=== PATIENT | female | born 1950 | race Caucasian/White ===

== ENCOUNTER → 2017-01-08 | Outpatient (CLI) | payer MEDICARE ==
[~2017-01-08] MED LIST: ALBUTEROL SULFATE 0.083% NEB 2.5 MG/3 ML AMPUL NEB ONE
--- NOTE | 2017-01-08 16:51 | Pulmonary Function Test ---
Pulmonary Function Test Date of Procedure:: 01/08/17 INDICATION:: Dyspnea Referring Provider: Dr. Head Machine Engineer: Blessing Mcadams INFORMATION TECHNOLOGY TEACHER - Report Spirometry: FVC 1.50 L 50% postbronchodilator therapy 1.39 L 46% FEV1 0.83 L 35% postbronchodilator therapy 0.81 L 34% FEV1/FVC % 56 postbronchodilator therapy 58 predicted 82 Lung Volume: Total lung capacity 3.08 L 61% Vital capacity 1.50 L 50% Inspiratory capacity 1.11 L FRC 1.98 81% ERV 0.15 RV 1.59 L 80% RV/TLC % 51 predicted 39 Diffusion Capactity: DLCO 8.9 37% DLCO/VA 4.99 134% Impression: Severe obstructive ventilatory defect with insignificant response to bronchodilator therapy. This does not preclude a clinical trial of bronchodilator therapy. Mild restrictive ventilatory defect. No hyperinflation or air trapping. Severe decrease in diffusion capacity.
== END ==
LOC: RT 12:34
PROVIDERS: ATTEND Internal Medicine Pulmonary Disease
DX: J47.1 Bronchiectasis with (acute) exacerbation (principal)
CPT/HCPCS: 94729; 94727; 94060; A9270

== ENCOUNTER 2017-01-10 20:54 | Emergency (ER) | payer MEDICARE ==
[~2017-01-10 20:54] MED LIST changes: -ALBUTEROL SULFATE 0.083% NEB 2.5 MG/3 ML AMPUL NEB ONE; +MAGNESIUM SULFATE/D5W 100 ML IV SCH; +ROCURONIUM BROMIDE INJ 50 MG/5 ML VIAL IV ONE
[2017-01-10] MEDS ORDERED: MAGNESIUM SULFATE/D5W 2 GM/200 ML RTUPB IV ONE (21:00)
[2017-01-10] MEDS ORDERED: ALBUTEROL SULFATE 0.083% NEB 2.5 MG/3 ML AMPUL NEB ONE ×3 (21:02→21:22)
[2017-01-10] MEDS ORDERED: ETOMIDATE INJ/PF 20 MG/10 ML SDV IV ONE (21:03)
[2017-01-10] MEDS ORDERED: KETAMINE HCL INJ 500 MG/10 ML VIAL IV ONE ×3 (21:05→21:30)
[2017-01-10] MEDS ORDERED: KETAMINE HCL INJ 500 MG/10 ML VIAL ONE ×2 (21:07→21:34)
[2017-01-10] MEDS ORDERED: ROCURONIUM BROMIDE INJ 50 MG/5 ML VIAL IV ONE (21:20)
--- NOTE | 2017-01-10 21:35 | ER Document Report ---
ED General - General Stated Complaint: DIFFICULTY BREATHING Cannot obtain history due to: Unstable vital signs, Other - Respiratory distress Notes: Patient is a 66-year-old female who presents in severe respiratory distress. Patient has a history of COPD no longer active smoker. History is extremely limited as at time of arrival patient is critically ill. Hemostasis outpatient saturating 64% on room air and in severe distress. Placed on CPAP and began continuous in-line nebulizers. Solu-Medrol was administered. The note minimal to no improvement with these interventions beyond improve and her oxygen saturation to 91% on CPAP. Has never had to be intubated past for COPD per her report. TRAVEL OUTSIDE OF THE [place] IN LAST 30 DAYS: No - Related Data Allergies/Adverse Reactions: No Known Allergies Allergy (Unverified 08/28/16 12:14) Past Medical History - General Information source: Patient - Social History Smoking Status: Former Smoker Frequency of alcohol use: None Drug Abuse: None Lives with: Family Family History: Reviewed & Not Pertinent Pulmonary Medical History: Reports: Hx COPD Endocrine Medical History: Reports: Hx Diabetes Mellitus Type 2 Review of Systems - Review of Systems Notes: Constitutional: Negative for fever. HENT: Negative for sore throat. Eyes: Negative for visual changes. Cardiovascular: Negative for chest pain. Respiratory: Positive for shortness of breath. Gastrointestinal: Negative for abdominal pain, vomiting or diarrhea. Genitourinary: Negative for dysuria. Musculoskeletal: Negative for back pain. Skin: Negative for rash. Neurological: Negative for headaches, weakness or numbness. 10 point ROS negative except as marked above and in HPI. Physical Exam - Vital signs Vitals: Resp Pulse Ox 33 H 87 L 01/10/17 20:59 01/10/17 20:59 Interpretation: Tachycardic, Hypoxic, Tachypneic Notes: PHYSICAL EXAMINATION: GENERAL: In severe respiratory distress. Critically ill in appearance. HEAD: Atraumatic, normocephalic. EYES: sclera anicteric, conjunctiva are normal. ENT: nares patent, oropharynx clear without exudates. Dry mucous membranes. NECK: supple without lymphadenopathy LUNGS: Severe respiratory distress with initial respiratory rate of 46 breaths per minute on CPAP by EMS. She is having abdominal heaving during respirations. Intercostal retractions as well as supraclavicular contractions. Diminished air movement throughout. Severe expiratory wheezing with a prolonged expiratory phase. HEART: Regular tachycardia without murmurs ABDOMEN: Soft, nontender, normoactive bowel sounds. No guarding, no rebound. No masses appreciated. EXTREMITIES: no pitting or edema. No cyanosis. NEUROLOGICAL: No focal neurological deficits. Moves all extremities spontaneously and on command. PSYCH: Anxious SKIN: Warm, Dry, normal turgor, no rashes or lesions noted. Course - Re-evaluation Re-evalutation: 01/10/17 21:00 Patient presents in severe respiratory distress findings most consistent with COPD exacerbation at time of arrival. Patient has severe distress with retractions throughout. Patient is critically ill in appearance and somewhat lethargic likely secondary to CO2 encephalopathy. Patient was immediately placed on a BiPAP with continuous in-line nebulizers. 2 g of IV magnesium was administered. Solu-Medrol 125 had already been given prior to arrival. Patient was observed for 15 minutes using BiPAP and aggressive measures using nebulizers. I also trial a low-dose of ketamine 15 mg which allowed patient to relax slightly but did not seem to improve her breathing any measurable degree. Will continue to monitor closely and see if patient can improve her overall clinical status on BiPAP although I remain concerned that she will require intubation at this time 2123-patient has continued with respiratory distress, continues to be somewhat encephalopathic. Chest x-ray shows atelectasis at the bases bilaterally. No pneumothorax. At this time patient is failing noninvasive positive pressure ventilation and will be intubated. 2134-patient was intubated without difficulty. First-pass attempt was successful. Patient will be placed on ventilator respiratory rate 22 FiO2 of 40 % with a tidal volume of 450. Continues of-year-old otherwise will be continued through the BiPAP. She was started on ketamine infusion for sedation and bronchodilation. She remains critically ill 01/10/17 22:00 Patient ventilating well with the ventilator. Venous blood gas return demonstrate findings consistent with an acute COPD exacerbation with associated respiratory acidosis. Lactate is normal. Awaiting the remainder patient's labs. Chest x-ray post intubation shows acceptable placement. 01/10/17 22:30 Patient did have hypotension, ET tube was disconnected and chest was manually compressed with normalization of the BP. Rate decreased to 14. Care discussed with family at the bedside at length. BNP and troponin wnl. I have discussed this case with Dr. Copeland who is informed me that we do not accept intubated patients at this time. This is apparently due to lack of staff in ICU. Will contact [facility] for transfer [id number]-I discussed this case with Dr. Lou at [facility] for transfer. He has accepted this patient in transfer 01/11/17 00:00 Transport has arrived for transfer the patient. She has been reassessed. Vitals within normal limits at this time with the exception of mild tachycardia. Ventilating well. Stable for transfer at this time - Vital Signs Vital signs: Temp Pulse Resp BP Pulse Ox 16 154/80 H 99 01/11/17 00:29 01/11/17 00:01 01/11/17 00:01 - Laboratory Result Diagrams: 01/10/17 21:03 01/10/17 21:03 Laboratory results interpreted by me: 01/10/17 01/10/17 01/10/17 21:03 21:03 21:03 WBC 23.0 H RDW 15.6 H Lymphocytes % (Manual) 9 L Eosinophils % (Manual) 8 H Abs Neuts (Manual) 17.7 H Absolute Eos (Manual) 1.8 H VBG pH 7.19 L* VBG pCO2 91.4 H* VBG HCO3 34.0 H Carbon Dioxide 34 H BUN 22 H Glucose 178 H Alkaline Phosphatase 129 H - Diagnostic Test Radiology reviewed: Image reviewed, Reports reviewed Procedures - Intubation Orotracheal Airway evaluation: Normal anatomy Mallampati Classification: Class 2 Medications: Ketamine, Other - Rocuronium Intubation method: Orotracheal Blade type: Alondra Blade size: 4 ETT size: 7.5 ETT secured at: Gums ETT secured at (cm): 21 Breath Sounds after Intubation: Equal End tidal CO2 confirmed: Yes Ventilator settings: SIMV Tidal volume: 400 FiO2: 40 Respirations: 22 PEEP: 5 Post Intubation Xray: Yes Intubation Complications: No complications Critical Care Note - Critical Care Note Total time excluding time spent on procedures (mins): 85 Comments: Critical care time spent obtaining history from patient or surrogate, discussions with consultants, development of treatment plan with patient or surrogate, evaluation of patient's response to treatment, examination of patient , ordering and performing treatments and interventions, ordering and review of laboratory studies, re-evaluation of patient's condition, ordering and review of radiographic studies and review of old charts Discharge - Discharge Clinical Impression: Respiratory distress, COPD exacerbation Condition: Critical Disposition: [facility] Referrals: LEIGHTON DONOVAN PA [Primary Care Provider] - Follow up as needed
[2017-01-10 21:43] LABS: HEMATOCRIT 41.3 % (36.0-47.0); HEMOGLOBIN 13.2 g/dL (12.0-15.5); HGB HCT DIFFERENCE -1.7; MEAN CORPUSCULAR HEMOGLOBIN 28.8 pg (27.0-33.4); MEAN CORPUSCULAR VOLUME 90 fl (80-97); RED CELL DISTRIBUTION WIDTH 15.6 % (11.5-14.0)
[2017-01-10 21:53] LABS: ALANINE AMINOTRANSFERASE 25 U/L (9-52); ALKALINE PHOSPHATASE 129 U/L (38-126); ANION GAP 10 (5-19); ASPARTATE AMINO TRANSFERASE 19 U/L (14-36); BILIRUBIN,DIRECT 0.3 mg/dL (0.0-0.4); BILIRUBIN,TOTAL 0.4 mg/dL (0.2-1.3); BLOOD UREA NITROGEN 22 mg/dL (7-20); CALCIUM 10.1 mg/dL (8.4-10.2); CARBON DIOXIDE 34 mmol/L (22-30); CHLORIDE 99 mmol/L (98-107); CREATININE RESULT 0.66 mg/dL (0.52-1.25); GLUCOSE 178 mg/dL (75-110); POTASSIUM 3.9 mmol/L (3.6-5.0); SODIUM 142.9 mmol/L (137-145); TOTAL PROTEIN 7.4 g/dL (6.3-8.2)
[2017-01-10 21:54] LABS: VENOUS BLOOD BASE EXCESS 2.6 mmol/L
[2017-01-10 21:56] LABS: VENOUS BLOOD PCO2 91.4 mmHg (35-63); VENOUS BLOOD PH 7.19 (7.30-7.42)
[2017-01-10 21:58] LABS: BASOPHILS % (MANUAL) 0 % (0-2); EOSINOPHILS % (MANUAL) 8 % (0-6); LYMPHOCYTES % (MANUAL) 9 % (13-45); TOTAL CELLS COUNTED 100
[2017-01-10 21:59] LABS: ANISOCYTOSIS SLIGHT; POLYCHROMASIA SLIGHT; TOXIC GRANULATION SLIGHT
[2017-01-10] MEDS ORDERED: NORMAL SALINE 1000 ML 500 ML IV ONE (21:59)
[2017-01-10] MEDS ORDERED: CEFTRIAXONE 1 GM/D5W RTU 50 ML IV ONE (22:00)
[2017-01-10] MEDS ORDERED: LEVOFLOXACIN 750 MG/D5W RTU 150 ML IV ONE (22:01)
[2017-01-10 22:07] LABS: TROPONIN I 0.037 ng/mL
[2017-01-11 00:04] VITALS: BP 154/80
--- NOTE | 2017-01-11 10:03 | EKG REPORT ---
SEVERITY:- ABNORMAL ECG - SINUS TACHYCARDIA PROBABLE LEFT ATRIAL ABNORMALITY : Confirmed by: Rose Sabillon 11-Jan-2017 10:02:52
== END 2017-01-11 00:29 | disposition short-term general hospital (02) ==
LOC: ER 20:54
PROC: 0BH17EZ Insertion of Endotracheal Airway into Trachea, Via Natural or Artificial Opening (ICD-10-PCS; principal; 2017-01-10)
DX: J44.1 Chronic obstructive pulmonary disease with (acute) exacerbation (principal); R53.83 Other fatigue; E11.9 Type 2 diabetes mellitus without complications
CPT/HCPCS: 31500; 93005; 94640 ×2; 99291; 99292; 96361; 96365; 96368; 36415; 87040; 85025; 80053; 84484; 82803; 83605; 83880; 71010; 93010; 94660; J3490 ×2; J0696; J1956; A9270; 94002

== ENCOUNTER 2017-03-18 23:19 | Inpatient (IN) | payer MEDICARE ==
--- NOTE | 2017-03-18 23:27 | ER Document Report ---
ED GI/ - General Chief Complaint: Shortness Of Breath Stated Complaint: DIFFICULTY BREATHING TRAVEL OUTSIDE OF THE [place] IN LAST 30 DAYS: No - Related Data Allergies/Adverse Reactions: No Known Allergies Allergy (Unverified 08/28/16 12:14) Past Medical History - Social History Family History: Reviewed & Not Pertinent Pulmonary Medical History: Reports: Hx COPD Endocrine Medical History: Reports: Hx Diabetes Mellitus Type 2
[2017-03-18] MEDS ORDERED: MAGNESIUM SULFATE/D5W 2 GM/200 ML RTUPB IV ONE (23:31)
[2017-03-18] MEDS ORDERED: IPRATROPIUM/ALBUTEROL 0.5-2.5 MG/3 ML AMPUL NEB ONE (23:35)
[2017-03-18] MEDS ORDERED: ALBUTEROL SULFATE 0.083% NEB 2.5 MG/3 ML AMPUL NEB ONE (23:35)
--- NOTE | 2017-03-18 23:40 | ER Document Report ---
ED General - General Chief Complaint: Shortness Of Breath Stated Complaint: DIFFICULTY BREATHING Time Seen by Provider: 03/18/17 23:34 Notes: Patient is a 66-year-old female with a history of severe COPD who presents for respiratory distress. She says she started having difficulty breathing during the day. She placed herself on oxygen 2 L at home and then started doing Albuterol treatments. She continued to get worse or call an ambulance. Paramedics gave her 2 DuoNeb treatments and Solu-Medrol in route. She has been intubated in the past. She denies any fevers. She denies any chest pain. She denies any other complaints at this time. She does not smoke any longer. TRAVEL OUTSIDE OF THE [place] IN LAST 30 DAYS: No - Related Data Allergies/Adverse Reactions: No Known Allergies Allergy (Unverified 08/28/16 12:14) Past Medical History - Social History Smoking Status: Former Smoker Frequency of alcohol use: None Drug Abuse: None Family History: Reviewed & Not Pertinent Pulmonary Medical History: Reports: Hx COPD Endocrine Medical History: Reports: Hx Diabetes Mellitus Type 2 Review of Systems - Review of Systems Notes: My Normal Review Basic REVIEW OF SYSTEMS: CONSTITUTIONAL : Denies fever, chills, or sweats. Denies recent illness. EENT: Denies eye, ear, throat, or mouth pain or symptoms. Denies nasal or sinus congestion. CARDIOVASCULAR: Denies chest pain. RESPIRATORY: Diffuse wheezing. GASTROINTESTINAL: Denies abdominal pain. Denies nausea, vomiting, or diarrhea. Denies constipation. Last BM: MUSCULOSKELETAL: Denies neck or back pain or joint pain or swelling. SKIN: Denies rash or skin lesions. NEUROLOGICAL: Denies altered mental status or loss of consciousness. Denies headache. Denies weakness or paralysis or loss of use of either side. Denies problems with gait or speech. Denies sensory or motor loss. ALL OTHER SYSTEMS REVIEWED AND NEGATIVE. Physical Exam - Vital signs Vitals: Resp Pulse Ox 25 H 95 03/18/17 23:35 03/18/17 23:35 - Notes Notes: General Appearance: Well nourished, alert, cooperative, moderate acute distress , no obvious discomfort. Speaking in 2-3 word sentences. Vitals: reviewed, See vital signs table. Head: no swelling or tenderness to the head Eyes: PERRL, EOMI, Conjuctiva clear Mouth: No decreasd moisture Throat: No tonsillar inflammation, No airway obstruction, No lymphadenopathy Neck: Supple, no neck tenderness Lungs: diffuse wheezing, No rales, No rhonci, No accessory muscle use, poorair exchange bilaterally. Heart: tachycardic rate, Regular rythm, No murmur, no rub Abdomen: Normal BS, soft, No rigidity, No abdominal tenderness, No guarding, no rebound, no abdominal masses, no organomegaly Extremities: strength 5/5 in all extremities, good pulses in all extremities, no swelling or tenderness in the extremities, 1+ bilateral lower extremityedema. Skin: warm, dry, appropriate color, no rash Neuro: speech clear, oriented x 3, normal affect, responds appropriately to questions. Course - Re-evaluation Re-evalutation: 03/19/17 00:39 Patient looks and feels much improved on exam. Patient's lung. Some tightness but she has much better air movement as compared to when she first came in. She is no longer in distress. I am awaiting the rest of her laboratory evaluation to come back. 03/19/17 02:24 - Vital Signs Vital signs: Temp Pulse Resp BP Pulse Ox 25 H 91 L 03/19/17 00:00 03/19/17 00:00 - Laboratory Result Diagrams: 03/18/17 23:35 03/18/17 23:35 Laboratory results interpreted by me: 03/18/17 03/18/17 03/18/17 23:35 23:35 23:35 WBC 13.7 H MCHC 31.7 L RDW 15.5 H Seg Neuts % (Manual) 85 H Lymphocytes % (Manual) 6 L Abs Neuts (Manual) 11.6 H Potassium 3.4 L Chloride 97 L Carbon Dioxide 31 H Glucose 137 H Alkaline Phosphatase 134 H Creatine Kinase 24 L - EKG Interpretation by Me Additional EKG results interpreted by me: 03/19/17 00:33 T is reviewed and interpreted by me. EKG shows sinus tachycardia with a rate of [address] segment elevation or depression. No ischemic T-wave inversions. WV interval, QRS duration, QTc intervals are within normal range. EKG for comparison is from January 10, 2017. - Transfer of Care Notes: 03/19/17 02:24 Continues to look improved. She is doing well on the BiPAP. Chest x-ray is read as pulmonary vascular congestion; however, when compared to her other chest x-rays it looks very much the same as her previous chest x-rays. She has no chest pain. Her EKG and cardiac enzymes are negative. At this time will admit her for further COPD exacerbation. Dictation of this chart was performed using voice recognition software; therefore, there may be some unintended grammatical errors. Discharge - Discharge Clinical Impression: COPD exacerbation Condition: Stable Disposition: ADMITTED INPATIENT Admitting Provider: Hospitalist Unit Admitted: MATT
--- NOTE | 2017-03-18 23:57 | RADIOLOGY REPORT (SQ) ---
EXAM DESCRIPTION: CHEST SINGLE VIEW COMPLETED DATE/TIME: 03/18/2017 11:48 pm REASON FOR STUDY: respiratory distress COMPARISON: 01/10/2017 EXAM PARAMETERS: NUMBER OF VIEWS: One view. TECHNIQUE: Single frontal radiographic view of the chest acquired. RADIATION DOSE: NA LIMITATIONS: None. FINDINGS: LUNGS AND PLEURA: No opacities, masses or pneumothorax. No pleural effusion. MEDIASTINUM AND HILAR STRUCTURES: No masses. Contour normal. HEART AND VASCULAR STRUCTURES: Cardiac silhouette remains enlarged. Again there is pulmonary vascula r congestion. BONES: No acute findings. HARDWARE: None in the chest. OTHER: No other significant finding. IMPRESSION: No significant interval change. Cardiomegaly with pulmonary vascular congestion. Other findings as noted above TECHNICAL DOCUMENTATION: JOB ID: [id number]
[2017-03-18 23:58] LABS: HEMOGLOBIN 12.7 g/dL (12.0-15.5); HGB HCT DIFFERENCE -1.9; MEAN CORPUSCULAR HEMOGLOBIN 28.7 pg (27.0-33.4); MEAN CORPUSCULAR HGB CONC 31.7 g/dL (32.0-36.0); MEAN CORPUSCULAR VOLUME 90 fl (80-97); RED BLOOD COUNT 4.42 10^6/uL (3.72-5.28); RED CELL DISTRIBUTION WIDTH 15.5 % (11.5-14.0); VENOUS BLOOD BASE EXCESS 0.3 mmol/L; VENOUS BLOOD HCO3 27.3 mmol/L (20-32); VENOUS BLOOD PCO2 53.9 mmHg (35-63); VENOUS BLOOD PH 7.32 (7.30-7.42); WHITE BLOOD COUNT 13.7 10^3/uL (4.0-10.5)
[2017-03-19 00:15] LABS: ALANINE AMINOTRANSFERASE 21 U/L (9-52); ALBUMIN 3.9 g/dL (3.5-5.0); ALKALINE PHOSPHATASE 134 U/L (38-126); ANION GAP 12 (5-19); ASPARTATE AMINO TRANSFERASE 15 U/L (14-36); BILIRUBIN,DIRECT 0.3 mg/dL (0.0-0.4); BILIRUBIN,TOTAL 0.4 mg/dL (0.2-1.3); BLOOD UREA NITROGEN 18 mg/dL (7-20); CALCIUM 10.1 mg/dL (8.4-10.2); CARBON DIOXIDE 31 mmol/L (22-30); CHLORIDE 97 mmol/L (98-107); CREATININE RESULT 0.64 mg/dL (0.52-1.25); GLUCOSE 137 mg/dL (75-110); POTASSIUM 3.4 mmol/L (3.6-5.0); SODIUM 140.4 mmol/L (137-145); TOTAL PROTEIN 7.5 g/dL (6.3-8.2)
[2017-03-19] MEDS ORDERED: FUROSEMIDE INJ/PF 40 MG/4 ML SDV IV ONE (00:32)
[2017-03-19 00:38] LABS: BASOPHILS % (MANUAL) 0 % (0-2); EOSINOPHILS % (MANUAL) 4 % (0-6); LYMPHOCYTES % (MANUAL) 6 % (13-45); TOTAL CELLS COUNTED 100
[2017-03-19 00:39] LABS: RBC MORPHOLOGY COMMENT NORMO-CYTIC/CHROMIC; TOXIC GRANULATION SLIGHT
[2017-03-19] MEDS: MAGNESIUM SULFATE/D5W 100 ML IV SCH ×2 (00:41→01:22)
[2017-03-19 01:10] LABS: CREATINE KINASE MB 0.51 ng/mL (<4.55)
[2017-03-19 01:13] LABS: TROPONIN I < 0.012 ng/mL
[2017-03-19] MEDS ORDERED: POTASSIUM CHLORIDE 10 MEQ TABLET.SA PO ONE (02:18)
[2017-03-19] MEDS ORDERED: GLUCAGON,HUMAN RECOMB 1 MG INJ IM PRN (05:26)
[2017-03-19] MEDS ORDERED: DEXTROSE 50%-WATER 25 GM/50 ML DISP.SYRIN IV PRN ×2 (05:26)
[2017-03-19] MEDS ORDERED: DEXTROSE 40% GEL 15 GM TUBE PO PRN ×2 (05:26)
[2017-03-19] MEDS ORDERED: POTASSIUM CHLORIDE 20 MEQ/15 ML UDCUP PO ONE (05:27)
[2017-03-19] MEDS ORDERED: NORMAL SALINE 1000 ML 1,000 ML IV PRN (05:30)
[2017-03-19] MEDS ORDERED: CEFEPIME 2 GM/D5W RTU 2 GM/50 ML RTUPB IV SCH (05:30)
[2017-03-19] MEDS ORDERED: ACETAMINOPHEN 325 MG TABLET PO PRN (05:31)
[2017-03-19] MEDS ORDERED: GUAIFENESIN SYRP 200 MG/10 ML UDC PO PRN (05:31)
[2017-03-19] MEDS ORDERED: ALBUTEROL SULFATE 0.083% NEB 2.5 MG/3 ML AMPUL NEB PRN (05:31)
[2017-03-19 05:51] LABS: HEMATOCRIT 39.2 % (36.0-47.0); HEMOGLOBIN 12.8 g/dL (12.0-15.5); HGB HCT DIFFERENCE -0.8; MEAN CORPUSCULAR HEMOGLOBIN 29.2 pg (27.0-33.4); MEAN CORPUSCULAR HGB CONC 32.6 g/dL (32.0-36.0); MEAN CORPUSCULAR VOLUME 89 fl (80-97); RED BLOOD COUNT 4.38 10^6/uL (3.72-5.28); RED CELL DISTRIBUTION WIDTH 15.8 % (11.5-14.0); WHITE BLOOD COUNT 8.7 10^3/uL (4.0-10.5)
[2017-03-19 05:53] LABS: VENOUS BLOOD BASE EXCESS 6.2 mmol/L; VENOUS BLOOD HCO3 33.4 mmol/L (20-32); VENOUS BLOOD PCO2 59.7 mmHg (35-63); VENOUS BLOOD PH 7.37 (7.30-7.42)
[2017-03-19] MEDS ORDERED: AZITHROMYCIN 500 MG in DEXTROSE 5%-WATER 250 ML IV SCH (06:00)
[2017-03-19 06:09] LABS: ANION GAP 12 (5-19); BLOOD UREA NITROGEN 19 mg/dL (7-20); CALCIUM 9.9 mg/dL (8.4-10.2); CARBON DIOXIDE 29 mmol/L (22-30); CHLORIDE 99 mmol/L (98-107); CREATININE RESULT 0.57 mg/dL (0.52-1.25); GLUCOSE 178 mg/dL (75-110); POTASSIUM 3.8 mmol/L (3.6-5.0); SODIUM 139.7 mmol/L (137-145)
[2017-03-19 06:42] LABS: ANISOCYTOSIS SLIGHT; BASOPHILS % (MANUAL) 0 % (0-2); EOSINOPHILS % (MANUAL) 0 % (0-6); LYMPHOCYTES % (MANUAL) 6 % (13-45); OVALOCYTES SLIGHT; TEAR DROP CELLS SLIGHT; TOTAL CELLS COUNTED 100; TOXIC GRANULATION SLIGHT
[2017-03-19] MEDS: LANSOPRAZOLE 30 MG TAB.RAP.DR PO SCH (07:45)
[2017-03-19] MEDS: ENOXAPARIN SODIUM INJ 40 MG/0.4 ML DISP.SYRIN SUBCUT SCH (07:46)
[2017-03-19] MEDS: IPRATROPIUM/ALBUTEROL 0.5-2.5 MG/3 ML AMPUL NEB SCH ×3 (08:40→20:38)
--- NOTE | 2017-03-19 09:31 | PDOC H&P ---
History of Present Illness Admission Date/PCP: 03/19/17 02:39 Jovanna Flores History of Present Illness: JULIANN DEAN is a 66 year old female with as needed home O2 dependent COPD who presents to the emergency room for less than 24 hour history of progressive worsening of her respiratory status, in particular with much of any exertion. Began using her oxygen at home, along with albuterol nebs, but with no relief. given 2 DuoNeb treatments and Solu-Medrol en route by EMS. Was in significant respiratory distress upon presentation to the emergency room , but now is breathing much more comfortably since application of BiPAP along with other treatments. no nausea vomiting, fever or chills, or chest pain. Hospitalized 4-5 days in January of this year at [facility], after being intubated in our emergency room and transferred there. Her only intubation. Patient has been discussed with emergency room physician who evaluated the patient. Laboratory results are listed in [facility] and are reviewed. X-ray summary results are listed below, with full report(s) reviewed. . EKG reviewed and compared to prior tracing from January 10 of this year. Social history/personal habits: . Lives with mother. Retired. No current tobacco use. No alcohol or illicit drug use. No known drug allergies. Home medications initially autopopulated into [facility] may not accurately reflect patient's true medications, dosages, and/or frequencies. nuclear medicine pet ct technologist to reconcile medications. Unfortunately, patient not certain of all medications/dosages/frequencies. REVIEW OF SYSTEMS: Constitutional: No fever or chills. Eyes: Wears glasses. ENT: No swallowing problems or complaints. Partial hearing loss. Pulmonary: See history and present illness. Cardiovascular: No current complaints, including chest pain. Gastrointestinal: No current complaints, including nausea or vomiting. Skin: No current complaints, including rashes. Hematologic: Easy bruising. Neurologic: No current complaints, including numbness or tingling. Musculoskeletal: Mild joint pain from arthritis. Psychiatric: Denies anxiety or depression. Endocrine: No current complaints, including polyuria. Genitourinary: No current complaints, including dysuria. PHYSICAL EXAMINATION: 5 feet 5 inches tall. 95.3 kg. BMI 34.9 kg/m.Temperature 97.9. Pulse 105 and regular. Blood pressure 141/73. 98% saturation on BiPAP 30%, pressure 12/ 6. Obese somewhat chronically ill-appearing female who appears a bit older than her stated age. Initially asleep, but awakens easily. Pleasant alert and cooperative. Mildly anxious, without agitation. Her female floor nurse is present. Skin is warm and dry. No grossly obvious evidence of rash in areas of skin examined. No subcutaneous nodules palpated. ENT: Hearing grossly normal to normal conversation. Tongue midline on protrusion pink and slightly tacky. Exam slightly limited by BiPAP mask with attaching straps. Eyes: No scleral icterus. Pupils equal and reactive to light at 4 mm. [place] conjunctivae. Neck is supple and nontender to gentle active range of motion and palpation. Midline trachea. No palpable thyroid nodule mass enlargement or tenderness. Lymphatic: No palpable cervical or clavicular nodes. Neck and lymphatic exams limited by patient body habitus. Exam slightly limited by BiPAP mask with attaching straps. Psychiatric: Reasonable insight into acute and chronic medical issues. Oriented to time location and why here. Lungs: Auscultation reveals equal breath sounds bilaterally. No use of accessory respiratory muscles. Slightly coarse breath sounds in right base; clear otherwise. Cardiovascular: Heart regular rate and rhythm, without gallop murmur or rub. No abdominal aortic bruits. Difficult to evaluate for carotid bruit due to airway sounds from BiPAP device. Cannot adequately evaluate for ankle or pedal edema along with peripheral pulses due to knee high ERNA hose. Toes are warm and dry with excellent capillary refill. Abdomen:soft somewhat obese nontender with positive bowel sounds. Unable to adequately evaluate abdomen for masses or organomegaly due to body habitus. Extremities: Toes are warm and dry. No calf tenderness to compression. Difficult to evaluate for calf swelling due to knee high ERNA hose. Gentle manipulation of lower extremities fails to reveal any obvious evidence of injury or instability to knees hips or ankles. Neurologic: Moves upper extremities grossly normally. Patellar reflexes absent. Absent Babinski. Light touch at feet cannot be adequately evaluated due to ERNA hose. Dorsiflexion and plantarflexion of feet 5 / 5 and symmetric. Past Medical History Cardiac Medical History: Reports: Hyperlipidema, Hypertension Denies: Congestive Heart Failure, DVT, Myocardial Infarction, Pulmonary Embolism Pulmonary Medical History: Reports: Chronic Obstructive Pulmonary Disease (COPD) Denies: Sleep Apnea EENT Medical History: Reports: Eyes - Glasses, Ears - Partial hearing loss Denies: Throat Neurological Medical History: Denies: Hemorrhagic CVA, Ischemic CVA, Seizures Endocrine Medical History: Reports: Diabetes Mellitus Type 2 Denies: Diabetes Mellitus Type 1, Hyperthyroidism, Hypothyroidism Renal/ Medical History: Reports: None GI Medical History: Denies: Cirrhosis, Gastroesophageal Reflux Disease, Hepatitis, Peptic Ulcer Disease Musculoskeltal Medical History: Reports: Arthritis - Mild Skin Medical History: Reports: None Psychiatric Medical History: Denies: Alcohol Dependency, Depression, General Anxiety Disorder, Substance Abuse, Tobacco Dependency Hematology: Reports: Other - Easy bruising Infectious Medical History: Reports: Methicillin-Resistant Staph Aureus - Skin infection during recent [facility] stay. Denies: Clostridium Difficile, Hepatitis B, Hepatitis C Past Surgical History Past Surgical History: Reports: Tubal Ligation Social History Information Source: Patient, Emergency Med Personnel, [facility] Records Lives with: Parents - 92-year-old mother Smoking Status: Former Smoker Frequency of Alcohol Use: None Hx Recreational Drug Use: No Hx Prescription Drug Abuse: No - Advance Directive Resuscitation Status: Full Code Surrogate healthcare decision maker:: Colin Ahumada Family History Family History: Reviewed & Not Pertinent Parental Family History Reviewed: Yes - Father of heart trouble. Mother healthy. Children Family History Reviewed: Yes - Healthy Sibling(s) Family History Reviewed.: Yes - 3 with cancer Medication/Allergy Home Medications: Albuterol Sulfate [Albuterol Sulfate 2.5mg/3 mL] 1 vial IH RTDAILYP PRN Albuterol Sulfate [Proair HFA] 2 puff IH DAILYP PRN 03/19/17 Aspirin [Aspirin 81 mg Chewable Tablet] 81 mg PO DAILY 03/19/17 Fluticasone/Salmeterol [Advair 250-50 Diskus 28 dose] 1 inh IH Q12 03/19/17 Furosemide [Lasix 20 mg Tablet] 20 mg PO DAILYP PRN 03/19/17 Hydrochlorothiazide 25 mg PO DAILY 03/19/17 Loratadine [Claritin 10 mg Tablet] 10 mg PO DAILY 03/19/17 Lovastatin 40 mg PO DAILY 03/19/17 Meloxicam [Mobic 15 mg Tablet] 15 mg PO DAILY 03/19/17 Paroxetine HCl [Paxil 20 mg Tablet] 20 mg PO DAILY 03/19/17 Pioglitazone HCl/Metformin HCl [Actoplus Met Xr 15-1,000 mg Tb] 1 each PO BID Potassium Chloride [Klor-Con 10 Meq Tablet.sa] 10 meq PO DAILYP PRN 03/19/17 Tiotropium [place] [Spiriva Handihaler 18 mcg/dose (30 Dose)] 1 cap IH DAILY Levofloxacin [Levaquin 750 mg Tablet] 750 mg PO DAILY #10 tab 03/20/17 Prednisone [Deltasone 20 mg Tablet] 40 mg PO DAILY #7 tablet 03/20/17 Allergies/Adverse Reactions: No Known Allergies Allergy (Unverified 08/28/16 12:14) Physical Exam Vital Signs: Temp Pulse Resp BP Pulse Ox 97.9 F 105 H 27 H 141/73 H 98 03/19/17 04:09 03/19/17 04:09 03/19/17 04:19 03/19/17 04:09 03/19/17 04:19 Intake & Output 03/18/17 03/19/17 03/20/17 00:59 00:59 00:59 Intake Total 10 Balance 10 Weight 95.254 kg Results Impressions: Chest X-Ray 03/18/17 23:35 IMPRESSION: No significant interval change. Cardiomegaly with pulmonary vascular congestion. Other findings as noted above Assessment & Plan - Diagnosis (1) Acute on chronic respiratory failure with hypercapnia Is this a current diagnosis for this admission?: YesPlan: Patient will be admitted under COPD exacerbation protocol. Incentive spirometry twice a day. Scheduled DuoNeb's. As needed albuterol nebs. Prednisone. Prevacid for gastritis prophylaxis. Antibiotics will consist of intravenous Zithromax and cefepime. Repeat blood gas. Wean from BiPAP as tolerated. I strongly encouraged patient to notify staff should patient feel that breathing is worsening. Patient is a full code. I have strongly encouraged patient not to get out of bed without notifying staff , to avoid a fall with injury. Knee high SCDs for DVT prophylaxis, along with subcutaneous Lovenox. Impression and plans were discussed with patient who concurs. Time spent in evaluation and management of patient: 72 critical-care minutes. (2) COPD exacerbation Is this a current diagnosis for this admission?: Yes (3) Hypokalemia Is this a current diagnosis for this admission?: YesPlan: Potassium supplement. Follow-up chemistry. (4) Diabetes mellitus type 2 in obese Is this a current diagnosis for this admission?: YesPlan: Ice chips only the present time. Accu-Cheks with appropriate sliding scale coverage. Resume home medications as appropriate once these have been determined and reviewed. (5) HLD (hyperlipidemia) Qualifiers: Hyperlipidemia type: unspecified Qualified Code(s): E78.5 - Hyperlipidemia, unspecified Is this a current diagnosis for this admission?: YesPlan: Resume home medications as appropriate once these have been determined and reviewed. (6) HTN (hypertension) Qualifiers: Hypertension type: essential hypertension Qualified Code(s): I10 - Essential (primary) hypertension Is this a current diagnosis for this admission?: YesPlan: Resume home medications as appropriate once these have been determined and reviewed. - Inpatient Certification Based on my medical assessment, after consideration of the patient's comorbidities, presenting symptoms, or acuity I expect that the services needed warrant INPATIENT care.: Yes I certify that my determination is in accordance with my understanding of Medicare's requirements for reasonable and necessary INPATIENT services [42 CFR 412.3e].: Yes Medical Necessity: Need Close Monitoring Due to Risk of Patient Decompensation, Need For IV Fluids, Need For Continuous Telemetry Monitoring, Need for Nebulizer Therapy and Monitoring of Response, Need for IV Antibiotics, Risk of Diagnosis Which Will Require Inpatient Eval/Care/Monitoring Post Hospital Care: D/C or Transfer Summary
[2017-03-19] MEDS: AZITHROMYCIN 500 MG in DEXTROSE 5%-WATER 250 ML IV SCH (10:03)
[2017-03-19] MEDS: CEFEPIME 2 GM/D5W RTU 2 GM/50 ML RTUPB IV SCH ×2 (10:03→21:16)
[2017-03-19] MEDS: PREDNISONE 20 MG TABLET PO SCH (10:03)
--- NOTE | 2017-03-19 11:20 | EKG REPORT ---
SEVERITY:- BORDERLINE ECG - SINUS TACHYCARDIA ATRIAL PREMATURE COMPLEX PROBABLE LATERAL INFARCT, OLD : Confirmed by: Rose Sabillon 19-Mar-2017 11:20:23
[2017-03-19] MEDS: INSULIN LISPRO 100 UNIT/ML 3 ML VIAL SUBCUT PRN ×3 (12:44→22:09)
--- NOTE | 2017-03-19 13:10 | PDOC PROGRESS REPORT ---
Subjective Progress Note for:: 03/19/17 Subjective:: reason for visit: f/u COPD exac, acute bronchitis hospital course: "JULIANN DEAN is a 66 year old female with as needed home O2 dependent COPD who presents to the emergency room for less than 24 hour history of progressive worsening of her respiratory status, in particular with much of any exertion. Began using her oxygen at home, along with albuterol nebs, but with no relief. given 2 DuoNeb treatments and Solu- Medrol in route by EMS. Was in significant respiratory distress upon presentation to the emergency room, but now is breathing much more comfortably since application of BiPAP along with other treatments. no nausea vomiting, fever or chills, or chest pain. Hospitalized 4-5 days in January of this year at [facility], after being intubated it in our emergency room and transferred there. Her only intubation." I found her sitting upright in bed with family at bedside, breathing easier and feels like she can come off the bipap. she denies chest pain, palpitations, n/v /d but still gets SOA with minimal exertion. ROS: all systems reviewed, see HPI, remaining systems negative Physical Exam Vital Signs: Temp Pulse Resp BP Pulse Ox 97.4 F 106 H 16 147/78 H 95 03/19/17 07:48 03/19/17 08:43 03/19/17 08:43 03/19/17 07:48 03/19/17 08:43 General appearance: PRESENT: no acute distress, obese, well-developed, well- nourished Head exam: PRESENT: atraumatic, normocephalic Eye exam: ABSENT: conjunctival injection, scleral icterus Neck exam: ABSENT: tracheal deviation Respiratory exam: PRESENT: crackles - coarse bilat. ABSENT: accessory muscle use, rales, rhonchi, wheezes Cardiovascular exam: PRESENT: RRR. ABSENT: systolic murmur Pulses: PRESENT: normal radial pulses, normal dorsalis pedis pul GI/Abdominal exam: PRESENT: normal bowel sounds, soft. ABSENT: tenderness Musculoskeletal exam: PRESENT: ambulatory, full ROM Neurological exam: PRESENT: alert, awake, oriented to person, oriented to place , oriented to time Psychiatric exam: PRESENT: appropriate affect, normal mood Skin exam: PRESENT: warm. ABSENT: rash Results Laboratory Results: 03/19/17 05:39 03/19/17 05:39 03/19/17 03/19/17 03/19/17 05:39 05:39 05:39 WBC 8.7 RBC 4.38 Hgb 12.8 Hct 39.2 MCV 89 MCH 29.2 MCHC 32.6 RDW 15.8 H Plt Count 192 Seg Neutrophils % Not Reportable Lymphocytes % Not Reportable Monocytes % Not Reportable Eosinophils % Not Reportable Basophils % Not Reportable Absolute Neutrophils Not Reportable Absolute Lymphocytes Not Reportable Absolute Monocytes Not Reportable Absolute Eosinophils Not Reportable Absolute Basophils Not Reportable VBG pH 7.37 VBG pCO2 59.7 VBG HCO3 33.4 H VBG Base Excess 6.2 Sodium 139.7 Potassium 3.8 Chloride 99 Carbon Dioxide 29 Anion Gap 12 BUN 19 Creatinine 0.57 Est GFR ( Amer) > 60 Est GFR (Non-Af Amer) > 60 Glucose 178 H Calcium 9.9 03/19/17 05:39 Troponin I < 0.012 Impressions: Chest X-Ray 03/18/17 23:35 IMPRESSION: No significant interval change. Cardiomegaly with pulmonary vascular congestion. Other findings as noted above Status: Image reviewed by me - agree with rads, consider left pleural effusion and ct scan if condition worsens Assessment & Plan - Diagnosis (1) Acute on chronic respiratory failure with hypercapnia Is this a current diagnosis for this admission?: YesPlan: improved but not back to baseline; continue intermitten BiPAP, steroids and pulm toilet. wears home O2 prn. (2) COPD exacerbation Is this a current diagnosis for this admission?: YesPlan: unchanged; probable bacterial bronchitis; continue abx and other treatment noted above (3) Diabetes mellitus type 2 in obese Is this a current diagnosis for this admission?: YesPlan: continue home regimen (4) HLD (hyperlipidemia) Qualifiers: Hyperlipidemia type: unspecified Qualified Code(s): E78.5 - Hyperlipidemia, unspecified Is this a current diagnosis for this admission?: YesPlan: continue home regimen (5) HTN (hypertension) Qualifiers: Hypertension type: essential hypertension Qualified Code(s): I10 - Essential (primary) hypertension Is this a current diagnosis for this admission?: YesPlan: continue home regimen - Time Time Spent with patient: 25-34 minutes Medications reviewed and adjusted accordingly: Yes Anticipated discharge: Home Within: within 48 hours
[2017-03-20] MEDS: LANSOPRAZOLE 30 MG TAB.RAP.DR PO SCH (05:35)
[2017-03-20] MEDS: ENOXAPARIN SODIUM INJ 40 MG/0.4 ML DISP.SYRIN SUBCUT SCH (08:03)
[2017-03-20] MEDS: IPRATROPIUM/ALBUTEROL 0.5-2.5 MG/3 ML AMPUL NEB SCH (08:34)
[2017-03-20 08:42] VITALS: BP 137/69
[2017-03-20] MEDS: CEFEPIME 2 GM/D5W RTU 2 GM/50 ML RTUPB IV SCH (10:18)
[2017-03-20] MEDS: PREDNISONE 20 MG TABLET PO SCH (10:18)
--- NOTE | 2017-03-20 10:49 | PDOC DISCHARGE SUMMARY ---
General - Admit/Disc Date/PCP Admission Date/Primary Care Provider: 03/19/17 05:31 Discharge Date: 03/20/17 - Discharge Diagnosis (1) Pneumonia Is this a current diagnosis for this admission?: YesSummary: likely LLL with parapneumonic effusion as trigger for her current ills; continue long course of abx. she is already scheduled for outpt ct chest by her PCP and should follow through with that test and f/u with PCP next week to make sure she is progressing as expected. (2) Acute on chronic respiratory failure with hypercapnia Is this a current diagnosis for this admission?: YesSummary: back to baseline; already has home O2, nebs and DME she needs at home. (3) COPD exacerbation Is this a current diagnosis for this admission?: YesSummary: as above (4) Diabetes mellitus type 2 in obese Is this a current diagnosis for this admission?: Yes (5) HLD (hyperlipidemia) Is this a current diagnosis for this admission?: Yes (6) HTN (hypertension) Is this a current diagnosis for this admission?: Yes - Additional Information Resuscitation Status: Full Code Discharge Diet: As Tolerated Discharge Activity: Activity As Tolerated, Slowly Increase Activity Home Medications: Albuterol Sulfate [Albuterol Sulfate 2.5mg/3 mL] 1 vial IH RTDAILYP PRN Albuterol Sulfate [Proair HFA] 2 puff IH DAILYP PRN 03/19/17 Aspirin [Aspirin 81 mg Chewable Tablet] 81 mg PO DAILY 03/19/17 Fluticasone/Salmeterol [Advair 250-50 Diskus 28 dose] 1 inh IH Q12 03/19/17 Furosemide [Lasix 20 mg Tablet] 20 mg PO DAILYP PRN 03/19/17 Hydrochlorothiazide 25 mg PO DAILY 03/19/17 Loratadine [Claritin 10 mg Tablet] 10 mg PO DAILY 03/19/17 Lovastatin 40 mg PO DAILY 03/19/17 Meloxicam [Mobic 15 mg Tablet] 15 mg PO DAILY 03/19/17 Paroxetine HCl [Paxil 20 mg Tablet] 20 mg PO DAILY 03/19/17 Pioglitazone HCl/Metformin HCl [Actoplus Met Xr 15-1,000 mg Tb] 1 each PO BID Potassium Chloride [Klor-Con 10 Meq Tablet.sa] 10 meq PO DAILYP PRN 03/19/17 Tiotropium [place] [Spiriva Handihaler 18 mcg/dose (30 Dose)] 1 cap IH DAILY Levofloxacin [Levaquin 750 mg Tablet] 750 mg PO DAILY #10 tab 03/20/17 Prednisone [Deltasone 20 mg Tablet] 40 mg PO DAILY #7 tablet 03/20/17 History of Present Illness Patient complains of: SOA History of Present Illness: JULIANN DEAN is a 66 year old female with as needed home O2 dependent COPD who presents to the emergency room for less than 24 hour history of progressive worsening of her respiratory status, in particular with much of any exertion. Hospital Course Hospital Course: Began using her oxygen at home, along with albuterol nebs, but with no relief. given 2 DuoNeb treatments and Solu-Medrol in route by EMS. Was in significant respiratory distress upon presentation to the emergency room, but now is breathing much more comfortably since application of BiPAP along with other treatments. no nausea vomiting, fever or chills, or chest pain. Hospitalized 4 -5 days in January of this year at [facility], after being intubated it in our emergency room and transferred there. Her only intubation." I found her sitting upright in bed with family at bedside, breathing easier and feels like she can come off the bipap. she denies chest pain, palpitations, n/v /d but still gets SOA with minimal exertion. she weaned off the BiPAP quickly and rapidly returned to her baseline such that on the day of d/c she was anxiously awaiting my arrival and d/c home orders. she is insistent she "can do this at home" and wants to try. she does indeed look remarkably improved with rapid turn around and appears stable for d/c home. Physical Exam Vital Signs: Temp Pulse Resp BP Pulse Ox 98.5 F 100 18 137/69 H 91 L 03/20/17 08:00 03/20/17 08:34 03/20/17 08:34 03/20/17 08:00 03/20/17 08:34 Intake & Output 03/19/17 03/20/17 03/21/17 06:59 06:59 06:59 Intake Total 2218 Output Total 9190 Balance 468 Weight 96 kg General appearance: PRESENT: no acute distress, obese, well-developed, well- nourished Head exam: PRESENT: atraumatic, normocephalic Eye exam: ABSENT: scleral icterus Respiratory exam: PRESENT: rales - left base. ABSENT: accessory muscle use, rhonchi, stridor, wheezes Cardiovascular exam: ABSENT: RRR, tachycardia GI/Abdominal exam: PRESENT: normal bowel sounds, soft Extremities exam: PRESENT: pedal edema - trace Musculoskeletal exam: PRESENT: ambulatory, full ROM Neurological exam: PRESENT: alert, awake, oriented to person, oriented to place , oriented to time, oriented to situation Results Laboratory Results: 03/19/17 05:39 03/19/17 05:39 03/19/17 10:07 Nasophary (Mrsa Only) MRSA Surveillance Culture - Final MRSA RECOVERED 03/19/17 05:39 Troponin I < 0.012 Impressions: Chest X-Ray 03/18/17 23:35 IMPRESSION: No significant interval change. Cardiomegaly with pulmonary vascular congestion. Other findings as noted above Qualifiers PATEINT BEING DISCHARGED WITH ANY OF THE FOLLOWING DIAGNOSIS?: No VTE patient discharged on overlapping Therapy?: No Reason(s) for not prescribing Overlap Therapy:: Not indicated Plan Discharge Plan: d/c home, return to the ED for worsening or recurrent symptoms; f/u with PCP early next week. Rxs provided by lyyl Doe Time Spent: Greater than 30 Minutes
[2017-03-20] MEDS: AZITHROMYCIN 500 MG in DEXTROSE 5%-WATER 250 ML IV SCH (11:12)
== END 2017-03-20 13:15 | disposition home or self-care (01) | DRG 190 ==
LOC: ER 23:19 → UNDOADMIN 03-19 02:39 → EH 03-19 02:39 → 3S 03-19 03:53 → EH 03-19 05:31
PROVIDERS: ADMIT Family Medicine; ATTEND Family Medicine
PROC: 5A09357 Assistance with Respiratory Ventilation, Less than 24 Consecutive Hours, Continuous Positive Airway Pressure (ICD-10-PCS; principal; 2017-03-18)
PROC: 3E0F73Z Introduction of Anti-inflammatory into Respiratory Tract, Via Natural or Artificial Opening (ICD-10-PCS; 2017-03-19)
DX: J44.0 Chronic obstructive pulmonary disease with (acute) lower respiratory infection (principal); J18.9 Pneumonia, unspecified organism; J96.22 Acute and chronic respiratory failure with hypercapnia; J44.1 Chronic obstructive pulmonary disease with (acute) exacerbation; E11.9 Type 2 diabetes mellitus without complications; E66.9 Obesity, unspecified; Z68.35 Body mass index [BMI] 35.0-35.9, adult; E78.5 Hyperlipidemia, unspecified; I10 Essential (primary) hypertension; B95.62 Methicillin resistant Staphylococcus aureus infection as the cause of diseases classified elsewhere; M19.90 Unspecified osteoarthritis, unspecified site; E87.6 Hypokalemia; Z99.81 Dependence on supplemental oxygen; Z87.891 Personal history of nicotine dependence; Z79.82 Long term (current) use of aspirin; Z79.899 Other long term (current) drug therapy; Z80.9 Family history of malignant neoplasm, unspecified; Z82.49 Family history of ischemic heart disease and other diseases of the circulatory system
CPT/HCPCS: 36415; 71010; 80048; 80053; 82550; 82553; 82803; 82962; 84484; 85025; 93005; 93010; 94640; 94660; 94799; 96365; 96375; 99285; J0456; J0692; J1650; J1815; J1940; J3475; J3490; J7060; J7512; J7620

== ENCOUNTER 2017-09-09 07:35 | Day surgery (SDC) | payer MEDICARE ==
[~2017-09-09 07:35] MED LIST changes: +BUPIVACAINE HCL 0.75% INJ/PF (7.5 MG/1 ML) 10 ML SDV OD PRN; +KETOROLAC TROMETHAMINE 0.45% 4 DROP/0.4 ML DROPERETTE OD PRN; +LIDOCAINE 4% INJ/PF (40 MG/ML) 5 ML AMPUL OD PRN; -MAGNESIUM SULFATE/D5W 100 ML IV SCH; +MIDAZOLAM 2 MG/2 ML INJ ONE; -ROCURONIUM BROMIDE INJ 50 MG/5 ML VIAL IV ONE
[2017-09-09] MEDS: TETRACAINE HCL 0.5% OPH SOLN 0.6 ML DROPERETTE OD PRN ×2 (08:21→08:50)
[2017-09-09] MEDS: CYCLOPENTOLATE 0.2%/PHENYLEPHRINE 1% OPH SOLN 2 ML OD PRN ×3 (08:22→08:45)
[2017-09-09] MEDS: TROPICAMIDE 1% OPH SOLN 3 ML OD PRN ×3 (08:22→08:45)
[2017-09-09] MEDS: BESIFLOXACIN HCL 0.6% OPH SUSP 5 ML BOTTLE OD PRN ×4 (08:23→09:20)
[2017-09-09] MEDS ORDERED: EPINEPHRINE INJ/PF 1 MG/1 ML AMPULE ONE (08:35)
[2017-09-09] MEDS ORDERED: CHONDR SU A NA/HYALUR INTRAOC KIT (SURGICARE) ONE (08:35)
--- NOTE | 2017-09-09 10:08 | [facility] OPERATIVE REPORT E ---
[facility] Operative Report NAME: JULIANN DEAN AGE: 67Y DATE OF SURGERY: 09/09/2017 ROOM: PREOPERATIVE DIAGNOSIS: Cataract, right eye. POSTOPERATIVE DIAGNOSIS: Cataract, right eye. PROCEDURE PERFORMED: Phacoemulsification with posterior chamber intraocular lens, right eye. SURGEON: Faith Pinto MD ANESTHESIA: Topical with MAC. INDICATIONS FOR SURGERY: Difficulty seeing street signs and TV. Best corrected visual acuity 20/50. PROCEDURE: The patient was brought to the operating room and placed on the operative table. Following tetracaine drops, topical anesthesia was administered. This consisted of instrument wipe pledgets soaked in a solution of 4% Xylocaine mixed with 0.75% Marcaine in a 1:2 ratio. A 2 x 1 cm pledget was placed in the superior fornix. A 1 x 1 cm pledget was placed in the inferior fornix. The eye was patched shut for 5 minutes. The patch was removed. The eye was sterilely prepped and draped in the usual manner. Lid speculum was placed in the eye. The pledgets were removed. 4-0 black silk sutures were placed around the superior and the inferior rectus muscles to be used as traction. A conjunctival peritomy was made at the 10 o'clock position. Hemostasis was obtained with bipolar cautery. A posterior limbal groove was created using a crescent knife and dissected anteriorly towards the cornea. A sharp point blade was used to create a paracentesis site at the 2 o'clock position. A 2.4 mm keratome was used to enter the anterior chamber through the groove. Viscoelastic was injected into the anterior chamber. An anterior capsulotomy was performed using Utrata forceps in a capsulorrhexis fashion. Hydrodissection and hydrodelineation were performed. Phacoemulsification was performed in [id number] technique. A total of 6.33 CDE phaco time was used. Following this, the I/A unit was used to remove residual cortex. Viscoelastic was injected into the capsular bag. Intraocular lens model SN60WF, 21.0 diopters, serial number [id number] was placed in the capsular bag. The I/A unit was used to remove residual viscoelastic. The wound was seen to be watertight under high and low pressure, and no sutures were placed. The intraocular lens was well centered. The pressure was adjusted in the eye to normal pressure. The 4-0 black silk sutures and lid speculum were removed. The eye was shielded after Besivance drops were placed. The patient tolerated the procedure well and was sent to the recovery room in good condition. DICTATING PHYSICIAN: FAITH PINTO M.D. [id number] PHY#: [id number] ID: [id number] JOB#: [id number] ACCT: [id number] cc:FAITH PINTO M.D. >
--- NOTE | 2017-09-09 10:18 | [facility] DISCHARGE SUMMARY E ---
[facility] Discharge Summary NAME: JULIANN DEAN AGE: 67Y ADMITTED: 09/09/2017 DISCHARGED: 09/09/2017 PREOPERATIVE DIAGNOSIS: Cataract, right eye. POSTOPERATIVE DIAGNOSIS: Cataract, right eye. HOSPITAL COURSE: The patient is a 67-year-old who underwent uneventful cataract extraction with intraocular lens implant, right eye, on 09/09/2017. She will be discharged to home. She was instructed to resume preoperative medications, take Tylenol as needed for discomfort, to keep her eye shielded, to use Besivance, Durezol, and Ilevro at 3 p.m. and 8 p.m., and to follow up in my office in 1 day. DICTATING PHYSICIAN: CALEB PINTO M.D. [id number] PHY#: [id number] ID: [id number] JOB#: [id number] ACCT: [id number] cc:CALEB PINTO M.D. >
== END 2017-09-09 10:00 | disposition home or self-care (01) ==
LOC: SC 07:35
PROVIDERS: ATTEND Ophthalmology
PROC: 08RJ3JZ Replacement of Right Lens with Synthetic Substitute, Percutaneous Approach (ICD-10-PCS; principal; 2017-09-09 09:00)
DX: H25.811 Combined forms of age-related cataract, right eye (principal); J44.9 Chronic obstructive pulmonary disease, unspecified; E11.9 Type 2 diabetes mellitus without complications
CPT/HCPCS: 66984; 82962; V2632; J2250; J3490 ×3; A9270; J0171; 142

== ENCOUNTER 2017-10-14 06:38 | Day surgery (SDC) | payer MEDICARE ==
[~2017-10-14 06:38] MED LIST changes: -BUPIVACAINE HCL 0.75% INJ/PF (7.5 MG/1 ML) 10 ML SDV OD PRN; +BUPIVACAINE HCL 0.75% INJ/PF (7.5 MG/1 ML) 10 ML SDV OS PRN; -KETOROLAC TROMETHAMINE 0.45% 4 DROP/0.4 ML DROPERETTE OD PRN; +KETOROLAC TROMETHAMINE 0.45% 4 DROP/0.4 ML DROPERETTE OS PRN; -LIDOCAINE 4% INJ/PF (40 MG/ML) 5 ML AMPUL OD PRN; +LIDOCAINE 4% INJ/PF (40 MG/ML) 5 ML AMPUL OS PRN; -MIDAZOLAM 2 MG/2 ML INJ ONE
[2017-10-14] MEDS: BESIFLOXACIN HCL 0.6% OPH SUSP 5 ML BOTTLE OS PRN ×5 (06:54→08:02)
[2017-10-14] MEDS: TROPICAMIDE 1% OPH SOLN 3 ML OS PRN ×3 (06:54→07:14)
[2017-10-14] MEDS: CYCLOPENTOLATE 0.2%/PHENYLEPHRINE 1% OPH SOLN 2 ML OS PRN ×3 (06:54→07:14)
[2017-10-14] MEDS: TETRACAINE HCL 0.5% OPH SOLN 0.6 ML DROPERETTE OS PRN ×2 (06:55→07:14)
[2017-10-14] MEDS ORDERED: ALBUTEROL SULFATE 0.083% NEB 2.5 MG/3 ML AMPUL NEB ONE (07:11)
[2017-10-14] MEDS ORDERED: MIDAZOLAM 2 MG/2 ML INJ ONE (07:12)
[2017-10-14] MEDS: EPINEPHRINE INJ/PF 1 MG/1 ML AMPULE ONE ×2 (07:46)
[2017-10-14] MEDS: CHONDR SU A NA/HYALUR INTRAOC KIT (SURGICARE) ONE ×2 (07:46)
--- NOTE | 2017-10-14 08:20 | [facility] DISCHARGE SUMMARY E ---
[facility] Discharge Summary NAME: JULIANN DEAN AGE: 67Y ADMITTED: 10/14/2017 DISCHARGED: 10/14/2017 HOSPITAL COURSE: The patient is a 67-year-old lady who underwent uneventful cataract extraction with intraocular lens implant, left eye, on 10/14/2017. She will be discharged to home. She is instructed to resume preoperative medications, take Tylenol as needed for discomfort, to keep her eye shielded, to use Besivance, Durezol, and Ilevro at 3 p.m., and to follow up in my office in 1 day. DICTATING PHYSICIAN: CALEB PINTO M.D. [id number] PHY#: [id number] ID: [id number] JOB#: [id number] ACCT: [id number] cc:CALEB PINTO M.D. >
--- NOTE | 2017-10-14 08:31 | [facility] OPERATIVE REPORT E ---
[facility] Operative Report NAME: JULIANN DEAN AGE: 67Y DATE OF SURGERY: 10/14/2017 ROOM: PREOPERATIVE DIAGNOSIS: Cataract, left eye. POSTOPERATIVE DIAGNOSIS: Cataract, left eye. PROCEDURE PERFORMED: Phacoemulsification with posterior chamber intraocular lens, left eye. SURGEON: CALEB PINTO M.D. ANESTHESIA: Topical with MAC. INDICATIONS FOR SURGERY: Difficulty with distance vision for driving and also reading vision. Best corrected visual acuity 20/60. PROCEDURE: The patient was brought to the Operating Room and placed on the operative table. Following tetracaine drops, topical anesthesia was administered. This consisted of instrument wipe pledgets soaked in a solution of 4% Xylocaine mixed with 0.75% Marcaine in a 1:2 ratio. A 2 x 1 cm pledget was placed in the superior fornix. A 1 x 1 cm pledget was placed in the inferior fornix. The eye was patched shut for 5 minutes. The patch was removed. The eye was sterilely prepped and draped in the usual manner. Lid speculum was placed in the eye. The pledgets were removed. 4-0 black silk sutures were placed around the superior and the inferior rectus muscles to be used as traction. A conjunctival peritomy was made at the 10 o'clock position. Hemostasis was obtained with bipolar cautery. A posterior limbal groove was created using a crescent knife and dissected anteriorly towards the cornea. A sharp point blade was used to create a paracentesis site at the 2 o'clock position. A 2.4 mm keratome was used to enter the anterior chamber through the groove. Viscoelastic was injected into the anterior chamber. An anterior capsulotomy was performed using Utrata forceps in a capsulorrhexis fashion. Hydrodissection and hydrodelineation were performed. Phacoemulsification was performed in [id number] technique. A total of 8.76 CDE phaco time was used. Following this, the I/A unit was used to remove residual cortex. Viscoelastic was injected into the capsular bag. Intraocular lens model [id number], 22.0 diopters, serial number [id number] was placed in the capsular bag. The I/A unit was used to remove residual viscoelastic. The wound was seen to be watertight under high and low pressure, and no sutures were placed. The intraocular lens was well centered. The pressure was adjusted in the eye to normal pressure. The 4-0 black silk sutures and lid speculum were removed. The eye was shielded after Besivance drops were placed. The patient tolerated the procedure well and was sent to the Recovery Room in good condition. DICTATING PHYSICIAN: CALEB PINTO M.D. [id number] PHY#: [id number] ID: [id number] JOB#: [id number] ACCT: [id number] cc:CALEB PINTO M.D. >
== END 2017-10-14 08:37 | disposition home or self-care (01) ==
LOC: SC 06:38
PROVIDERS: ATTEND Ophthalmology
PROC: 08R Eye, Replacement (ICD-10-PCS; principal; 2017-10-14 07:30)
DX: H25.812 Combined forms of age-related cataract, left eye (principal); Z96.1 Presence of intraocular lens; J44.9 Chronic obstructive pulmonary disease, unspecified; M19.90 Unspecified osteoarthritis, unspecified site; E11.9 Type 2 diabetes mellitus without complications; I10 Essential (primary) hypertension; Z79.84 Long term (current) use of oral hypoglycemic drugs; Z79.1 Long term (current) use of non-steroidal anti-inflammatories (NSAID); Z79.899 Other long term (current) drug therapy; Z79.51 Long term (current) use of inhaled steroids; Z79.82 Long term (current) use of aspirin
CPT/HCPCS: 66984; 82962; V2632; J2250; J3490 ×3; A9270 ×2; J0171; 142

== ENCOUNTER 2018-04-05 17:37 | Inpatient (IN) | payer MEDICARE ==
[2018-04-05 18:05] LABS: VENOUS BLOOD BASE EXCESS 10.1 mmol/L; VENOUS BLOOD HCO3 36.1 mmol/L (20-32); VENOUS BLOOD PCO2 53.8 mmHg (35-63); VENOUS BLOOD PH 7.44 (7.30-7.42)
[2018-04-05 18:08] LABS: HEMATOCRIT 36.8 % (36.0-47.0); HEMOGLOBIN 12.2 g/dL (12.0-15.5); MEAN CORPUSCULAR HEMOGLOBIN 29.5 pg (27.0-33.4); MEAN CORPUSCULAR HGB CONC 33.2 g/dL (32.0-36.0); MEAN CORPUSCULAR VOLUME 89 fl (80-97); PLATELET COUNT 258 10^3/uL (150-450); RED BLOOD COUNT 4.13 10^6/uL (3.72-5.28); RED CELL DISTRIBUTION WIDTH 14.5 % (11.5-14.0); WHITE BLOOD COUNT 11.5 10^3/uL (4.0-10.5)
[2018-04-05 18:14] LABS: ALANINE AMINOTRANSFERASE 21 U/L (9-52); ALBUMIN 3.5 g/dL (3.5-5.0); ALKALINE PHOSPHATASE 113 U/L (38-126); ANION GAP 11 (5-19); ASPARTATE AMINO TRANSFERASE 14 U/L (14-36); BILIRUBIN,DIRECT 0.5 mg/dL (0.0-0.4); BILIRUBIN,TOTAL 0.6 mg/dL (0.2-1.3); BLOOD UREA NITROGEN 22 mg/dL (7-20); CARBON DIOXIDE 32 mmol/L (22-30); CHLORIDE 93 mmol/L (98-107); GLUCOSE 155 mg/dL (75-110); SODIUM 135.5 mmol/L (137-145); TOTAL PROTEIN 6.9 g/dL (6.3-8.2)
[2018-04-05 18:20] LABS: PROTHROMBIN TIME 13.7 SEC (11.4-15.4)
--- NOTE | 2018-04-05 18:24 | RADIOLOGY REPORT (SQ) ---
EXAM DESCRIPTION: CHEST SINGLE VIEW COMPLETED DATE/TIME: 04/05/2018 6:17 pm REASON FOR STUDY: cough COMPARISON: 03/18/2017 EXAM PARAMETERS: NUMBER OF VIEWS: One view. TECHNIQUE: Single frontal radiographic view of the chest acquired. RADIATION DOSE: NA LIMITATIONS: None. FINDINGS: LUNGS AND PLEURA: Extensive opacity at the left base. Left effusion. Minimal right basil ar opacity. MEDIASTINUM AND HILAR STRUCTURES: No masses. Contour normal. HEART AND VASCULAR STRUCTURES: Heart normal in size. Normal vasculature. BONES: No acute findings. HARDWARE: None in the chest. OTHER: No other significant finding. IMPRESSION: Extensive left lower lobe pneumonia. TECHNICAL DOCUMENTATION: JOB ID: [id number] [email or web address]- All Rights Reserved Reading location - IP/workstation name: [email or web address]
[2018-04-05 18:31] LABS: ABSOLUTE LYMPHOCYTES# (MANUAL) 0.6 10^3/uL (0.5-4.7); ABSOLUTE MONOCYTES # (MANUAL) 0.7 10^3/uL (0.1-1.4); ABSOLUTE NEUTROPHILS# (MANUAL) 9.9 10^3/uL (1.7-8.2); BASOPHILS % (MANUAL) 0 % (0-2); EOSINOPHILS % (MANUAL) 3 % (0-6); LYMPHOCYTES % (MANUAL) 5 % (13-45); MONOCYTES % (MANUAL) 6 % (3-13); SEGMENTED NEUTROPHILS % (MAN) 86 % (42-78); TOTAL CELLS COUNTED 100
[2018-04-05 18:32] LABS: PLATELET COMMENT ADEQUATE; RBC MORPHOLOGY COMMENT NORMO-CYTIC/CHROMIC
[2018-04-05] MEDS ORDERED: METHYLPREDNISOLONE INJ 125 MG/2 ML SDV IV ONE (18:47)
[2018-04-05] MEDS ORDERED: IPRATROPIUM/ALBUTEROL 0.5-2.5 MG/3 ML AMPUL NEB ONE (18:47)
[2018-04-05] MEDS ORDERED: CEFTRIAXONE INJ 1000 MG VIAL IV ONE (18:49)
[2018-04-05] MEDS ORDERED: NORMAL SALINE 1000 ML 1,000 ML IV ONE (18:49)
[2018-04-05] MEDS ORDERED: AZITHROMYCIN INJ 500 MG VIAL IV ONE (18:50)
--- NOTE | 2018-04-05 18:54 | ER Document Report ---
ED General - General Chief Complaint: General Weakness Stated Complaint: WEAKNESS Time Seen by Provider: 04/05/18 18:41 Mode of Arrival: Medic Information source: Patient Notes: 67-year-old female brought to the emergency department with complaints of 4 day history of generalized weakness, productive cough, increased shortness of breath. Patient does have a history of COPD and is on 2 L nasal cannula as needed at home. Patient states that she has been needing to wear her oxygen more the last couple of days. She denies any chest pain, nausea, vomiting, diaphoresis. Patient states that she has not been on antibiotics since December. Patient has had no hospitalizations recently. Patient states that she has been using her nebulizers at home. She is not currently on any steroids. TRAVEL OUTSIDE OF THE [place] IN LAST 30 DAYS: No - HPI Onset: Last week Onset/Duration: Gradual Quality of pain: No pain Severity: Moderate Associated symptoms: Productive cough, Fever Exacerbated by: Denies Relieved by: Denies Similar symptoms previously: No Recently seen / treated by doctor: No - Related Data Allergies/Adverse Reactions: No Known Allergies Allergy (Verified 10/14/17 06:51) Past Medical History - General Information source: Patient - Social History Smoking Status: Former Smoker Chew tobacco use (# tins/day): No Frequency of alcohol use: None Drug Abuse: None Family History: Reviewed & Not Pertinent Patient has suicidal ideation: No Patient has homicidal ideation: No - Past Medical History Cardiac Medical History: Reports: Hx Hypercholesterolemia Denies: Hx Congestive Heart Failure, Hx DVT, Hx Heart Attack, Hx Hypertension , Hx Pulmonary Embolism Pulmonary Medical History: Reports: Hx COPD Denies: Hx Asthma, Hx Sleep Apnea Neurological Medical History: Denies: Hx Cerebrovascular Accident, Hx Seizures Endocrine Medical History: Reports: Hx Diabetes Mellitus Type 2. Denies: Hx Diabetes Mellitus Type 1, Hx Hyperthyroidism, Hx Hypothyroidism Renal/ Medical History: Denies: Hx Peritoneal Dialysis GI Medical History: Denies: Hx Cirrhosis, Hx Gastroesophageal Reflux Disease, Hx Hepatitis, Hx Hiatal Hernia, Hx Ulcer Musculoskeltal Medical History: Reports Hx Arthritis - Mild Psychiatric Medical History: Denies: Hx Depression Infectious Medical History: Reports: Hx MRSA - Skin infection during recent [facility] stay.. Denies: Hx C-Diff, Hx Hepatitis Past Surgical History: Reports: Hx Tubal Ligation. Denies: Hx Mastectomy, Hx Open Heart Surgery, Hx Pacemaker Review of Systems - Review of Systems Constitutional: Fever, Weakness EENT: No symptoms reported Cardiovascular: No symptoms reported Respiratory: Cough, Wheezing Gastrointestinal: No symptoms reported Genitourinary: No symptoms reported Female Genitourinary: No symptoms reported Musculoskeletal: No symptoms reported Skin: No symptoms reported Hematologic/Lymphatic: No symptoms reported Neurological/Psychological: No symptoms reported -: Yes All other systems reviewed and negative Physical Exam - Vital signs Vitals: Pulse Ox 95 04/05/18 17:40 Interpretation: Normal, Tachycardic - Notes Notes: PHYSICAL EXAMINATION: GENERAL: Well-appearing, well-nourished and in no acute distress. HEAD: Atraumatic, normocephalic. EYES: Pupils equal round and reactive to light, extraocular movements intact, conjunctiva are normal. ENT: Nares patent, oropharynx clear without exudates. Moist mucous membranes. NECK: Normal range of motion, supple without lymphadenopathy LUNGS: Wheezing to the left lobe no crackles or rhonchi. HEART: Tachycardia. ABDOMEN: Soft, nontender, nondistended abdomen. No guarding, no rebound. No masses appreciated. Female : deferred Musculoskeletal: Normal range of motion, no pitting or edema. No cyanosis. NEUROLOGICAL: Cranial nerves grossly intact. Normal speech, normal gait. Normal sensory, motor exams PSYCH: Normal mood, normal affect. SKIN: Warm, Dry, normal turgor, no rashes or lesions noted. Course - Re-evaluation Re-evalutation: 04/05/18 20:04 Labs and imaging obtained. LLL pneumonia appreciated. Patient is tachycardic, tachypneic, with elevated WBC and lactic acid. Meets sepsis criteria. Rocephin and azithromycin ordered. Patient stable. Hospitalist is agreeable to admission. - Vital Signs Vital signs: Temp Pulse Resp BP Pulse Ox 99.1 F 25 H 143/63 H 96 04/05/18 17:52 04/05/18 18:01 04/05/18 18:00 04/05/18 18:01 - Laboratory Result Diagrams: 04/05/18 17:43 04/05/18 17:43 Laboratory results interpreted by me: 04/05/18 04/05/18 04/05/18 17:43 17:43 17:43 WBC 11.5 H RDW 14.5 H Seg Neuts % (Manual) 86 H Lymphocytes % (Manual) 5 L Abs Neuts (Manual) 9.9 H VBG pH 7.44 H VBG HCO3 36.1 H Sodium 135.5 L Potassium 3.0 L* Chloride 93 L Carbon Dioxide 32 H BUN 22 H Glucose 155 H Calcium 11.0 H Direct Bilirubin 0.5 H - EKG Interpretation by Me Additional EKG results interpreted by me: 04/05/18 18:53 EKG: Ventricular rate 115, AR interval 148, QRS duration 86, QTc 448, sinus tachycardia. No ischemic changes. Discharge - Discharge Clinical Impression: Sepsis Qualifiers: Sepsis type: sepsis due to unspecified organism Qualified Code(s): A41.9 - Sepsis, unspecified organism Pneumonia Qualifiers: Pneumonia type: due to unspecified organism Laterality: left Lung location: lower lobe of lung Qualified Code(s): J18.1 - Lobar pneumonia, unspecified organism Condition: Stable Disposition: ADMITTED INPATIENT Admitting Provider: Hospitalist Unit Admitted: IMCU Referrals: LEIGHTON DONOVAN PA [Primary Care Provider] - Follow up as needed
--- NOTE | 2018-04-05 19:12 | EKG REPORT ---
SEVERITY:- ABNORMAL ECG - SINUS TACHYCARDIA ATRIAL PREMATURE COMPLEX PROBABLE LEFT ATRIAL ABNORMALITY BORDERLINE T ABNORMALITIES, ANTERIOR LEADS : Confirmed by: Dariela Smith MD 05-Apr-2018 19:11:27
[2018-04-05] MEDS: POTASSI CL 20 MEQ/50 ML RIDER 20 MEQ/50 ML RTUPB IV SCH ×2 (19:43→23:20)
[2018-04-05 20:42] LABS: APPEARANCE,URINE SLIGHTLY-CLOUDY; BILIRUBIN,URINE NEGATIVE (NEGATIVE); COLOR,URINE YELLOW; GLUCOSE, URINE NEGATIVE (NEGATIVE); KETONES,URINE NEGATIVE (NEGATIVE); LEUKOCYTE ESTERASE,URINE TRACE (NEGATIVE); NITRITE,URINE NEGATIVE (NEGATIVE); PROTEIN,URINE NEGATIVE (NEGATIVE); URINE SPECIFIC GRAVITY 1.023
[2018-04-05] MEDS ORDERED: ACETAMINOPHEN 325 MG TABLET PO PRN (21:43)
[2018-04-05] MEDS ORDERED: ALBUTEROL SULFATE 0.083% NEB 2.5 MG/3 ML AMPUL NEB PRN (21:43)
[2018-04-05] MEDS ORDERED: DEXTROSE 40% GEL 15 GM TUBE PO PRN ×2 (21:50)
[2018-04-05] MEDS ORDERED: INSULIN LISPRO 100 UNIT/ML 3 ML VIAL SUBCUT PRN (21:50)
[2018-04-05] MEDS ORDERED: GLUCAGON,HUMAN RECOMB 1 MG INJ IM PRN (21:50)
[2018-04-05] MEDS ORDERED: DEXTROSE 50%-WATER 25 GM/50 ML DISP.SYRIN IV PRN ×2 (21:50)
--- NOTE | 2018-04-05 22:09 | PDOC H&P ---
History of Present Illness Admission Date/PCP: 04/05/18 20:09 LINDA KENDALL Patient complains of: Weakness History of Present Illness: JULIANN DEAN is a 67 year old woman with past medical history significant for COPD, higher tobacco use disorder, type 2 diabetes, recurrent pneumonia over the past 2 years. She reports that since of this week she has had very low energy level. On she started coughing up bloody mucus. That discontinued by Friday afternoon but she continued to feel weaker and weaker. She had a fever of 99.1 today but she thinks that her temperature was probably higher than that. She and her daughter were in her home today and the patient was feeling weak and a little bit lightheaded, while walking to the kitchen she lost ability to stand and fell back on her couch though she did not lose consciousness. 911 was called and the patient was brought to the ER. She is not having chest pain, she does not feel that she is wheezing but daughter said she has heard wheezing. No nausea or vomiting. Appetite has been poor. Urine output she thinks has been normal. Daughter reports that this patient has had 3 or 4 episodes of pneumonia, typically in the left lower lobe, since 2016. She does see a house painter helper as an outpatient. Etiology of the recurrent pneumonia not entirely clear. Patient states she has not been diagnosed with lung cancer. She is being admitted to the hospitalist service with left lower lobe pneumonia and sepsis, along with hypokalemia. Past Medical History Cardiac Medical History: Reports: Hyperlipidema Denies: Congestive Heart Failure, DVT, Myocardial Infarction, Hypertension, Pulmonary Embolism Pulmonary Medical History: Reports: Chronic Obstructive Pulmonary Disease (COPD) , Pneumonia Denies: Asthma, Sleep Apnea Neurological Medical History: Denies: Ischemic CVA, Seizures Endocrine Medical History: Reports: Diabetes Mellitus Type 2, Obesity Denies: Diabetes Mellitus Type 1, Hyperthyroidism, Hypothyroidism Malignancy Medical History: Reports: None GI Medical History: Denies: Cirrhosis, Gastroesophageal Reflux Disease, Hepatitis, Hiatal Hernia , Peptic Ulcer Disease Musculoskeltal Medical History: Reports: Arthritis - Mild Psychiatric Medical History: Denies: Alcohol Dependency, Depression, General Anxiety Disorder, Substance Abuse, Tobacco Dependency Hematology: Denies: Anemia, Sickle Cell Disease Infectious Medical History: Reports: Methicillin-Resistant Staph Aureus - Skin infection during recent [facility] stay. Denies: Clostridium Difficile Past Surgical History Past Surgical History: Reports: Cholecystectomy, Tubal Ligation Denies: Amputation, Mastectomy, Pacemaker Social History Information Source: Patient, Relative Lives with: Alone Smoking Status: Former Smoker Last Time Smoked: Quit 17 years ago, cannot recall how many years she did smoke Frequency of Alcohol Use: None Hx Recreational Drug Use: No Hx Prescription Drug Abuse: No Past Social History Note: Patient is retired from the [employer]. She lives in the [place] area. She has 2 daughters. - Advance Directive Resuscitation Status: Do Not Resuscitate Surrogate healthcare decision maker:: Daughter Carline Schaefer, phone number [phone] Family History Parental Family History Reviewed: Yes - None reported Children Family History Reviewed: Yes - She reports her children are healthy Sibling(s) Family History Reviewed.: Yes - She has 3 brothers all have had cancer, one with prostate, one with lymphoma and one with esophageal Medication/Allergy Home Medications: Albuterol Sulfate [Proair HFA] 2 puff IH DAILYP PRN 03/19/17 Aspirin [Aspirin 81 mg Chewable Tablet] 81 mg PO DAILY 03/19/17 Fluticasone/Salmeterol [Advair 250-50 Diskus 28 dose] 1 inh IH Q12 03/19/17 Furosemide [Lasix 20 mg Tablet] 20 mg PO DAILYP PRN 03/19/17 Hydrochlorothiazide 25 mg PO DAILY 03/19/17 Loratadine [Claritin 10 mg Tablet] 10 mg PO DAILY 03/19/17 Lovastatin 40 mg PO DAILY 03/19/17 Meloxicam [Mobic 15 mg Tablet] 15 mg PO DAILY PRN 03/19/17 Paroxetine HCl [Paxil 20 mg Tablet] 20 mg PO DAILY 03/19/17 Potassium Chloride [Klor-Con 10 Meq Tablet.sa] 10 meq PO DAILYP PRN 03/19/17 Tiotropium Hardin [Spiriva Handihaler 18 mcg/dose (30 Dose)] 1 cap IH DAILY Besifloxacin HCl [Besivance 0.6% Oph Susp 5 ml] 1 drop OP .3PM AND 8PM TODAY Difluprednate [Durezol] 1 drop OP .3PM AND 8PM TODAY 09/02/17 Nepafenac [Ilevro] 1 drop OP .3PM AND 8PM TODAY 09/02/17 Pioglitazone HCl/Metformin HCl [Actoplus Met Xr 15-1,000 Mg Tb] 1 each PO DAILY 09/02/17 Allergies/Adverse Reactions: No Known Allergies Allergy (Verified 10/14/17 06:51) Review of Systems Constitutional: PRESENT: anorexia, fever(s), weakness Eyes: ABSENT: visual disturbances Ears: ABSENT: hearing changes Nose, Mouth, and Throat: ABSENT: headache(s), mouth pain, sore throat Cardiovascular: PRESENT: edema. ABSENT: chest pain, dyspnea on exertion Respiratory: PRESENT: cough, dyspnea, sputum Gastrointestinal: PRESENT: constipation. ABSENT: abdominal pain, nausea, vomiting Musculoskeletal: PRESENT: muscle weakness. ABSENT: back pain, joint swelling Integumentary: ABSENT: lesions, wounds Neurological: PRESENT: dizziness, weakness. ABSENT: confusion, convulsions Psychiatric: PRESENT: depression. ABSENT: anxiety Endocrine: ABSENT: cold intolerance, heat intolerance Hematologic/Lymphatic: ABSENT: easy bleeding, easy bruising, lymphadenopathy Allergic/Immunologic: PRESENT: seasonal rhinorrhea Physical Exam Vital Signs: Temp Pulse Resp BP Pulse Ox 99.1 F 24 H 133/78 H 96 04/05/18 17:52 04/05/18 20:00 04/05/18 19:00 04/05/18 20:00 General appearance: PRESENT: no acute distress, cooperative, obese Head exam: PRESENT: atraumatic, normocephalic Eye exam: PRESENT: conjunctiva pink. ABSENT: scleral icterus Ear exam: PRESENT: normal external ear exam Mouth exam: PRESENT: moist, neck supple, tongue midline Neck exam: ABSENT: lymphadenopathy, tenderness, tracheal deviation Respiratory exam: PRESENT: decreased breath sounds, unlabored, wheezes. ABSENT : accessory muscle use, chest wall tenderness, clear to auscultation agatha, prolonged expiratory phas, rales, tachypnea Cardiovascular exam: PRESENT: RRR. ABSENT: diastolic murmur, systolic murmur Pulses: PRESENT: normal radial pulses Vascular exam: PRESENT: normal capillary refill GI/Abdominal exam: PRESENT: normal bowel sounds, soft. ABSENT: distended, guarding, tenderness Rectal exam: ABSENT: deferred Gentrourinary exam: ABSENT: indwelling catheter Extremities exam: PRESENT: pedal edema - Trace. ABSENT: +1 edema Musculoskeletal exam: PRESENT: normal inspection. ABSENT: deformity Neurological exam: PRESENT: alert, awake, oriented to person, oriented to place , oriented to situation, CN II-XII grossly intact Psychiatric exam: PRESENT: appropriate affect. ABSENT: anxious Skin exam: PRESENT: dry, intact. ABSENT: jaundice, mottled, skin tears Results Impressions: Chest X-Ray 04/05/18 17:58 IMPRESSION: Extensive left lower lobe pneumonia. Assessment & Plan - Diagnosis (1) Pneumonia Qualifiers: Pneumonia type: due to unspecified organism Laterality: left Lung location: lower lobe of lung Qualified Code(s): J18.1 - Lobar pneumonia, unspecified organism Is this a current diagnosis for this admission?: Yes Plan: Patient has a left lower lobe pneumonia. She does not meet criteria for healthcare associated pneumonia. She has been started on ceftriaxone and azithromycin. She will also be on oxygen to keep her sats greater than 90. She will be fluid hydrated while her appetite is poor. As needed Tylenol available for fever. Of note the patient's daughter reports that she has been hospitalized 4 times in the last 2 years with pneumonia, they think that they are all left lower lobe pneumonias. She is followed by a house painter helper as an outpatient. No history of lung cancer. (2) Sepsis Qualifiers: Sepsis type: sepsis due to unspecified organism Qualified Code(s): A41.9 - Sepsis, unspecified organism Is this a current diagnosis for this admission?: Yes Plan: This is secondary to pneumonia. She is on IV fluids for hydration. Lactic acid level is normal. Parameters are already improving. We will follow her white blood cell count in the morning. Blood cultures are pending. Sputum culture is ordered. She is on ceftriaxone and azithromycin. (4) Hypokalemia Is this a current diagnosis for this admission?: Yes Plan: Possibly secondary to poor oral intake and also she is on 6 at home. Does take potassium supplementation at home. She has received what appears to be 40 mEq of potassium in the ER. I have a potassium pending and then will continue to replete as indicated. Her initial potassium in the ER was 3.0. She is on telemetry. (5) Diabetes mellitus type 2 in obese Is this a current diagnosis for this admission?: Yes Plan: Patient is on oral diabetic medication at home. Here she is on a diabetic and cardiac diet. She will have Accu-Cheks before meals and at bedtime and bolus acting insulin before meals and at bedtime initially, we will monitor her blood glucose to see if any changes need to be made to this regimen. (6) Depression Is this a current diagnosis for this admission?: Yes Plan: We will start the patient on her Paxil 20 mg daily. (7) Elevated troponin Is this a current diagnosis for this admission?: Yes Plan: Patient has a slightly elevated troponin. She is not having chest pain. We will follow her troponins every 6 hours for now secondary to diabetes as a significant risk factor, EKG in the morning. - Time Time Spent: 50 to 70 Minutes Medications reviewed and adjusted accordingly: Yes Disposition: Patient meets criteria for inpatient admission with an expected greater than 2 midnight stay. - Inpatient Certification Based on my medical assessment, after consideration of the patient's comorbidities, presenting symptoms, or acuity I expect that the services needed warrant INPATIENT care.: Yes I certify that my determination is in accordance with my understanding of Medicare's requirements for reasonable and necessary INPATIENT services [42 CFR 412.3e].: Yes Medical Necessity: Need For IV Fluids, Need for Nebulizer Therapy and Monitoring of Response, Need for IV Antibiotics
[2018-04-05 22:38] LABS: INTERNATIONAL RATION (INR) 1.01; PROTHROMBIN TIME 13.8 SEC (11.4-15.4)
[2018-04-05 22:39] LABS: PARTIAL THROMBOPLASTIN TIME 24.8 SEC (23.5-35.8)
[2018-04-05] MEDS ORDERED: POTASSI CL 20 MEQ/50 ML RIDER 20 MEQ/50 ML RTUPB IV ONE (23:17)
[2018-04-05] MEDS: HEPARIN SOD (PORCINE) 5,000 UNIT/ML 1 ML SYRINGE SUBCUT SCH (23:36)
[2018-04-06] MEDS: IPRATROPIUM/ALBUTEROL 0.5-2.5 MG/3 ML AMPUL NEB SCH ×2 (02:35→08:42)
[2018-04-06 04:56] LABS: HEMATOCRIT 34.5 % (36.0-47.0); HEMOGLOBIN 11.6 g/dL (12.0-15.5); MEAN CORPUSCULAR HEMOGLOBIN 29.9 pg (27.0-33.4); MEAN CORPUSCULAR HGB CONC 33.7 g/dL (32.0-36.0); MEAN CORPUSCULAR VOLUME 89 fl (80-97); PLATELET COUNT 194 10^3/uL (150-450); RED BLOOD COUNT 3.88 10^6/uL (3.72-5.28); RED CELL DISTRIBUTION WIDTH 14.4 % (11.5-14.0); WHITE BLOOD COUNT 6.8 10^3/uL (4.0-10.5)
[2018-04-06 04:57] LABS: ANION GAP 7 (5-19); BLOOD UREA NITROGEN 17 mg/dL (7-20); CARBON DIOXIDE 35 mmol/L (22-30); CHLORIDE 97 mmol/L (98-107); GLUCOSE 206 mg/dL (75-110); POTASSIUM 3.4 mmol/L (3.6-5.0); SODIUM 138.5 mmol/L (137-145)
[2018-04-06] MEDS: NORMAL SALINE 1000 ML 1,000 ML IV PRN (04:59)
[2018-04-06] MEDS: HEPARIN SOD (PORCINE) 5,000 UNIT/ML 1 ML SYRINGE SUBCUT SCH (05:02)
[2018-04-06] MEDS ORDERED: METHYLPREDNISOLONE INJ 125 MG/2 ML SDV IV SCH ×2 (06:00→14:45)
--- NOTE | 2018-04-06 06:54 | EKG REPORT ---
SEVERITY:- NORMAL ECG - SINUS RHYTHM : Confirmed by: Dariela Smith MD 06-Apr-2018 06:54:03
[2018-04-06] MEDS ORDERED: MELOXICAM 15 MG TABLET PO PRN (10:33)
[2018-04-06] MEDS ORDERED: BESIFLOXACIN HCL 0.6% OPH SUSP 5 ML BOTTLE OP SCH (10:45)
[2018-04-06] MEDS ORDERED: (PENDING PHARMACY ID) (Nepafenac [Ilevro] 1 DROP) OP SCH (10:45)
[2018-04-06] MEDS ORDERED: (PENDING PHARMACY ID) (Difluprednate [Durezol] 1 DROP) OP SCH (10:45)
[2018-04-06] MEDS ORDERED: ASPIRIN 81 MG TABLET, CHEWABLE PO SCH (10:45)
[2018-04-06] MEDS ORDERED: LACTOBACILLUS ACIDOPHILUS 250 MG TAB PO ONE (10:45)
[2018-04-06 11:49] LABS: HEMATOCRIT 34.7 % (36.0-47.0); HEMOGLOBIN 11.6 g/dL (12.0-15.5); MEAN CORPUSCULAR HGB CONC 33.4 g/dL (32.0-36.0); MEAN CORPUSCULAR VOLUME 90 fl (80-97); PLATELET COUNT 241 10^3/uL (150-450); RED BLOOD COUNT 3.86 10^6/uL (3.72-5.28); RED CELL DISTRIBUTION WIDTH 14.5 % (11.5-14.0); WHITE BLOOD COUNT 7.7 10^3/uL (4.0-10.5)
[2018-04-06 11:55] LABS: INTERNATIONAL RATION (INR) 1.04; PROTHROMBIN TIME 14.1 SEC (11.4-15.4)
[2018-04-06 11:56] LABS: PARTIAL THROMBOPLASTIN TIME 38.8 SEC (23.5-35.8)
[2018-04-06 12:15] LABS: PHOSPHORUS 2.1 mg/dL (2.5-4.5)
[2018-04-06] MEDS ORDERED: POTASSIUM CHLORIDE 10 MEQ CAPSULE.ER PO ONE (12:30)
[2018-04-06] MEDS ORDERED: GUAIFENESIN 600 MG TABLET.SA PO ONE (13:00)
[2018-04-06] MEDS ORDERED: LORATADINE 10 MG TABLET PO ONE (13:00)
[2018-04-06] MEDS ORDERED: PAROXETINE HCL 20 MG TABLET PO ONE (13:00)
[2018-04-06] MEDS ORDERED: TIOTROPIUM BROMIDE DPI 5 CAP/KIT (18 MCG/CAP) IH ONE (13:00)
[2018-04-06] MEDS: ALBUTEROL SULFATE 0.083% NEB 2.5 MG/3 ML AMPUL NEB SCH ×2 (14:25→19:44)
[2018-04-06] MEDS ORDERED: LANSOPRAZOLE 15 MG TAB.RAP.DR PO ONE (16:00)
[2018-04-06] MEDS: METHYLPREDNISOLONE INJ 40 MG/1 ML SDV IV SCH (17:04)
[2018-04-06] MEDS: LACTOBACILLUS ACIDOPHILUS 250 MG TAB PO SCH (17:05)
[2018-04-06] MEDS: FLUTICASONE/SALMETEROL DISKUS 250-50 MCG/DOSE IH SCH (17:29)
--- NOTE | 2018-04-06 17:59 | PDOC PROGRESS REPORT ---
Subjective Progress Note for:: 04/06/18 Subjective:: The patient is a 67-year-old female with past medical history of Tobacco dependence COPD on home oxygen 2 L by nasal cannula as needed Type 2 diabetes, not on insulin Hyperlipidemia Arthritis She presented to the hospital on April 05 with shortness of breath cough and generalized weakness. She felt somewhat lightheaded and was also wheezing, appetite has been poor. The patient's family reported that she has been diagnosed approximately 4 times with left lower lobe pneumonia in the past 18 months. She follows with a it architect as an outpatient. The patient was started on IV steroids, antibiotics IV fluids and potassium was repleted. She feels better Reason For Visit: LEFT LOWER LOBE COMMUITY ACQUIRED PNEUMONIA AND Physical Exam Vital Signs: Temp Pulse Resp BP Pulse Ox 98.1 F 85 18 126/43 H 96 04/06/18 07:32 04/06/18 08:42 04/06/18 08:42 04/06/18 07:32 04/06/18 08:42 Intake & Output 04/05/18 04/06/18 04/07/18 06:59 06:59 06:59 Intake Total 2321 Output Total 1400 Balance 921 Weight 93.6 kg General appearance: PRESENT: no acute distress Head exam: PRESENT: normocephalic Ear exam: PRESENT: normal external ear exam Mouth exam: PRESENT: moist Respiratory exam: PRESENT: rhonchi, symmetrical, unlabored Cardiovascular exam: PRESENT: RRR GI/Abdominal exam: PRESENT: normal bowel sounds, soft. ABSENT: tenderness Rectal exam: PRESENT: deferred Gentrourinary exam: ABSENT: indwelling catheter Extremities exam: ABSENT: pedal edema Neurological exam: PRESENT: alert, awake, oriented to person, oriented to place , oriented to time, oriented to situation Psychiatric exam: PRESENT: appropriate affect Results Laboratory Results: 04/06/18 04:12 04/06/18 04:12 04/05/18 04/05/18 04/06/18 21:52 22:22 04:12 WBC 6.8 RBC 3.88 Hgb 11.6 L Hct 34.5 L MCV 89 MCH 29.9 MCHC 33.7 RDW 14.4 H Plt Count 194 Sodium Potassium 3.1 L Chloride Carbon Dioxide Anion Gap BUN Creatinine Est GFR ( Amer) Est GFR (Non-Af Amer) Glucose Lactic Acid 2.1 Calcium 04/06/18 04:12 WBC RBC Hgb Hct MCV MCH MCHC RDW Plt Count Sodium 138.5 Potassium 3.4 L Chloride 97 L Carbon Dioxide 35 H Anion Gap 7 BUN 17 Creatinine 0.67 Est GFR ( Amer) > 60 Est GFR (Non-Af Amer) > 60 Glucose 206 H Lactic Acid Calcium 11.0 H 04/05/18 04/06/18 22:22 04:12 Troponin I 0.019 < 0.012 Impressions: Chest X-Ray 04/05/18 17:58 IMPRESSION: Extensive left lower lobe pneumonia. Assessment & Plan - Diagnosis (1) Sepsis Qualifiers: Sepsis type: sepsis due to unspecified organism Qualified Code(s): A41.9 - Sepsis, unspecified organism Is this a current diagnosis for this admission?: Yes Plan: [place] to be secondary to pneumonia. Improving. Continue IV fluids and antibiotics. (2) Pneumonia Qualifiers: Pneumonia type: due to unspecified organism Laterality: left Lung location: lower lobe of lung Qualified Code(s): J18.1 - Lobar pneumonia, unspecified organism Is this a current diagnosis for this admission?: Yes Plan: Day 2 of Rocephin and azithromycin. Follow-up on sputum cultures. Continue mucolytics, nebs, supplemental oxygen. Incentive spirometry and flutter valve. (3) Acute on chronic respiratory failure with hypercapnia Is this a current diagnosis for this admission?: Yes Plan: Due to COPD exacerbation and left lower lobe pneumonia (4) Hypokalemia Is this a current diagnosis for this admission?: Yes Plan: Replete and monitor. (5) HLD (hyperlipidemia) Qualifiers: Hyperlipidemia type: unspecified Qualified Code(s): E78.5 - Hyperlipidemia , unspecified Is this a current diagnosis for this admission?: Yes Plan: On lovastatin (6) HTN (hypertension) Qualifiers: Hypertension type: essential hypertension Qualified Code(s): I10 - Essential (primary) hypertension Is this a current diagnosis for this admission?: Yes Plan: Monitor and treat as indicated. (7) Hypercalcemia Is this a current diagnosis for this admission?: Yes Plan: Check PTH. IV fluids. Monitor calcium levels. We will need to rule out underlying malignancy especially given ongoing tobacco use and recurrent left lower lobe infiltrate which could possibly be a tumor. (8) Diabetes mellitus Qualifiers: Diabetes mellitus type: type 2 Diabetes mellitus oysterman insulin use: without usp use Diabetes mellitus complication status: with unspecified complications Qualified Code(s): E11.8 - Type 2 diabetes mellitus with unspecified complications Is this a current diagnosis for this admission?: Yes Plan: Hold oral hypoglycemic agents. Insulin sliding scale and diabetic diet. (9) Depression Is this a current diagnosis for this admission?: Yes (10) COPD exacerbation Is this a current diagnosis for this admission?: Yes Plan: Supplemental oxygen, IV steroids, neb treatments. Continue Advair and Spiriva. (11) Tobacco dependence Is this a current diagnosis for this admission?: Yes Plan: Nicotine patch as needed. (12) DVT prophylaxis Is this a current diagnosis for this admission?: Yes Plan: Subcutaneous Lovenox. - Time Time Spent with patient: 35 or more minutes
[2018-04-06] MEDS ORDERED: CEFTRIAXONE SODIUM 1,000 MG in DEXTROSE 5%-WATER 50 ML IV SCH (18:00)
[2018-04-06] MEDS ORDERED: AZITHROMYCIN 250 MG TABLET PO SCH (18:00)
[2018-04-06] MEDS ORDERED: CEFTRIAXONE 1 GM/D5W RTU 1 GM/50 ML RTUPB IV SCH (18:00)
--- NOTE | 2018-04-06 18:43 | RADIOLOGY REPORT (SQ) ---
EXAM DESCRIPTION: CT CHEST WITHOUT COMPLETED DATE/TIME: 04/06/2018 4:23 pm REASON FOR STUDY: Recurrent pneumonia, pleural effusion, r/o mass COMPARISON: 04/05/2018 chest radiograph TECHNIQUE: CT scan performed of the chest without intravenous contrast. Images reviewed with lung, soft tissue and bone windows. Reconstructed coronal and sagittal MPR images reviewed. All images st ored on PACS. All CT scanners at this facility use dose modulation, iterative reconstruction, and/or weight based d osing when appropriate to reduce radiation dose to as low as reasonably achievable (ALARA). [facility]: Dose Right [facility]: CareDose [facility]: Dose Right [facility]: Teradose 4D [facility]: [employer] RADIATION DOSE: CT Rad equipment meets quality standard of care and radiation dose reduction techniq ues were employed. CTDIvol: 15.4 mGy. DLP: 536 mGy-cm. mGy. LIMITATIONS: No technical limitations. FINDINGS: LUNGS AND PLEURA: Bibasilar somewhat dense infiltrates with air bronchograms. Infiltrate also noted in the right middle lobe. Minimal infiltrate in the left upper lobe. No pneumothorax. HILAR AND MEDIASTINAL STRUCTURES: Nonspecific nonenlarged mediastinal nodes. HEART AND VASCULAR STRUCTURES: Coronary artery calcification. UPPER ABDOMEN: No significant findings. Limited exam. THYROID AND OTHER SOFT TISSUES: No masses. No adenopathy. BONES: No significant finding. HARDWARE: None in the chest. OTHER: No other significant findings. IMPRESSION: Multi lobar pneumonia. TECHNICAL DOCUMENTATION: JOB ID: [id number] Quality ID # [id number]: Final reports with documentation of one or more dose reduction techniques (e.g., Au tomated exposure control, adjustment of the mA and/or kV according to patient size, use of iterative reconstruction technique) 2010 [employer]- All Rights Reserved Reading location - IP/workstation name: [email or web address]
[2018-04-06] MEDS ORDERED: DOCUSATE SODIUM 100 MG CAPSULE PO ONE (19:00)
[2018-04-06] MEDS ORDERED: (PENDING PHARMACY ID) (Lovastatin [Lovastatin] 40 MG) PO SCH (22:00)
[2018-04-06] MEDS ORDERED: ATORVASTATIN CALCIUM 10 MG TABLET PO SCH (22:00)
[2018-04-06] MEDS: GUAIFENESIN 600 MG TABLET.SA PO SCH (22:29)
[2018-04-07] MEDS: FLUTICASONE/SALMETEROL DISKUS 250-50 MCG/DOSE IH SCH (05:22)
[2018-04-07] MEDS: METHYLPREDNISOLONE INJ 40 MG/1 ML SDV IV SCH (05:23)
[2018-04-07] MEDS: NORMAL SALINE 1000 ML 1,000 ML IV PRN (05:26)
[2018-04-07] MEDS ORDERED: LANSOPRAZOLE 15 MG TAB.RAP.DR PO SCH (06:00)
[2018-04-07 07:22] LABS: HEMOGLOBIN 10.6 g/dL (12.0-15.5); MEAN CORPUSCULAR HEMOGLOBIN 29.8 pg (27.0-33.4); MEAN CORPUSCULAR HGB CONC 33.1 g/dL (32.0-36.0); MEAN CORPUSCULAR VOLUME 90 fl (80-97); PLATELET COUNT 198 10^3/uL (150-450); RED BLOOD COUNT 3.55 10^6/uL (3.72-5.28); RED CELL DISTRIBUTION WIDTH 14.3 % (11.5-14.0); WHITE BLOOD COUNT 9.7 10^3/uL (4.0-10.5)
[2018-04-07 07:50] LABS: BLOOD UREA NITROGEN 20 mg/dL (7-20); CALCIUM 11.3 mg/dL (8.4-10.2); GLUCOSE 146 mg/dL (75-110); PHOSPHORUS 2.7 mg/dL (2.5-4.5)
[2018-04-07 08:34] LABS: ANION GAP 7 (5-19); CARBON DIOXIDE 29 mmol/L (22-30); CHLORIDE 107 mmol/L (98-107); SODIUM 143.1 mmol/L (137-145)
[2018-04-07] MEDS: ALBUTEROL SULFATE 0.083% NEB 2.5 MG/3 ML AMPUL NEB SCH ×2 (08:36→13:59)
[2018-04-07] MEDS ORDERED: 1/2 NORMAL SALINE 1,000 ML IV PRN (09:22)
[2018-04-07] MEDS ORDERED: DOCUSATE SODIUM 100 MG CAPSULE PO SCH (10:00)
[2018-04-07] MEDS ORDERED: POTASSIUM CHLORIDE 10 MEQ CAPSULE.ER PO SCH (10:00)
[2018-04-07] MEDS ORDERED: TIOTROPIUM BROMIDE DPI 5 CAP/KIT (18 MCG/CAP) IH SCH (10:00)
[2018-04-07] MEDS ORDERED: THIAMINE HCL 100 MG TABLET PO SCH (10:00)
[2018-04-07] MEDS ORDERED: PAROXETINE HCL 20 MG TABLET PO SCH (10:00)
[2018-04-07] MEDS ORDERED: LORATADINE 10 MG TABLET PO SCH (10:00)
[2018-04-07] MEDS ORDERED: (PENDING PHARMACY ID) (Thiamine Hcl [Vitamin B-1] 100 MG) PO SCH (10:00)
[2018-04-07] MEDS ORDERED: ENOXAPARIN SODIUM INJ 40 MG/0.4 ML DISP.SYRIN SUBCUT SCH (10:00)
[2018-04-07 10:11] LABS: FREE T3 2.48 pg/mL (2.77-5.27); FREE T4 (FREE THYROXINE) 1.82 ng/dL (0.78-2.19)
[2018-04-07] MEDS: LACTOBACILLUS ACIDOPHILUS 250 MG TAB PO SCH (11:12)
[2018-04-07] MEDS: GUAIFENESIN 600 MG TABLET.SA PO SCH (11:12)
[2018-04-07] MEDS ORDERED: LEVOFLOXACIN 750 MG TABLET PO ONE (13:30)
--- NOTE | 2018-04-07 13:36 | PDOC DISCHARGE SUMMARY ---
General - Admit/Disc Date/PCP Admission Date/Primary Care Provider: 04/05/18 20:09 LINDA KENDALL Discharge Date: 04/07/18 - Discharge Diagnosis (1) Sepsis Is this a current diagnosis for this admission?: Yes Summary: Early sepsis due to pneumonia- resolved (2) Pneumonia Is this a current diagnosis for this admission?: Yes Summary: B/l Lower lobe (3) Acute on chronic respiratory failure with hypercapnia Is this a current diagnosis for this admission?: Yes (4) Hypokalemia Is this a current diagnosis for this admission?: Yes (5) HLD (hyperlipidemia) Is this a current diagnosis for this admission?: Yes (6) HTN (hypertension) Is this a current diagnosis for this admission?: Yes (7) Hypercalcemia Is this a current diagnosis for this admission?: Yes (8) Diabetes mellitus Is this a current diagnosis for this admission?: Yes (9) Depression Is this a current diagnosis for this admission?: Yes (10) COPD exacerbation Is this a current diagnosis for this admission?: Yes (11) Tobacco dependence Is this a current diagnosis for this admission?: Yes (12) DVT prophylaxis Is this a current diagnosis for this admission?: Yes (13) Primary hyperparathyroidism Is this a current diagnosis for this admission?: Yes (14) Low TSH level Is this a current diagnosis for this admission?: Yes - Additional Information Resuscitation Status: Do Not Resuscitate Discharge Diet: Diabetic Discharge Activity: Activity As Tolerated Prescriptions: Guaifenesin [Mucinex Sr 600 mg Tablet.sa] 600 mg PO Q12 5 Days #10 Lactobacillus Acidophilus [Bacid 250 mg Tablet] 500 mg PO BID 15 Days #30 tab Levofloxacin [Levaquin 750 mg Tablet] 750 mg PO DAILY 5 Days #5 tablet Home Medications: Fluticasone/Salmeterol [Advair 250-50 Diskus 28 dose] 1 inh IH Q12 03/19/17 Furosemide [Lasix 20 mg Tablet] 20 mg PO DAILYP PRN 03/19/17 Hydrochlorothiazide 25 mg PO DAILY 03/19/17 Loratadine [Claritin 10 mg Tablet] 10 mg PO DAILY 03/19/17 Lovastatin 40 mg PO QHS 03/19/17 Meloxicam [Mobic 15 mg Tablet] 15 mg PO DAILY 03/19/17 Paroxetine HCl [Paxil 20 mg Tablet] 20 mg PO DAILY 03/19/17 Potassium Chloride [Klor-Con 10 Meq Capsule ER] 10 meq PO DAILYP PRN MDD take with lasix 03/19/17 Tiotropium [place] [Spiriva Handihaler 18 mcg/dose (30 Dose)] 1 cap IH DAILY Metformin HCl [Metformin HCl ER] 1,000 mg PO BID 04/06/18 Pioglitazone HCl [Actos 15 mg Tablet] 15 mg PO BID 04/06/18 Thiamine HCl [Vitamin B-1] 100 mg PO DAILY 04/06/18 Guaifenesin [Mucinex Sr 600 mg Tablet.sa] 600 mg PO Q12 5 Days #10 04/07/18 Lactobacillus Acidophilus [Bacid 250 mg Tablet] 500 mg PO BID 15 Days #30 tab Levofloxacin [Levaquin 750 mg Tablet] 750 mg PO DAILY 5 Days #5 tablet 04/07/18 History of Present Illness History of Present Illness: The patient is a 67-year-old female with past medical history of COPD on home oxygen 2 L by nasal cannula as needed Type 2 diabetes, not on insulin Hyperlipidemia Arthritis Prior smoker She presented to the hospital on April 05 with shortness of breath cough and generalized weakness. She felt somewhat lightheaded and was also wheezing, appetite has been poor. The patient's family reported that she has been diagnosed approximately 4 times with left lower lobe pneumonia in the past 18 months. She follows with a wire harness design engineer as an outpatient. The patient was started on IV steroids, antibiotics IV fluids and potassium was repleted. She was noted to have a calcium of 11.3 with an elevated PTH of 197.7. TSH is 0.22 with free T4 of 1.82 and free T3 of 2.48. No signs or symptoms of hyperthyroidism. 24 hour urine calcium was not checked. She will need further workup of her hypercalcemia as an outpatient. She is doing much better and is stable for discharge home. The patient was given a prescription for Levaquin to complete a course of antibiotics. Hospital Course Hospital Course: As above Physical Exam Vital Signs: Temp Pulse Resp BP Pulse Ox 98.2 F 97 16 142/79 H 91 L 04/07/18 07:31 04/07/18 08:36 04/07/18 08:36 04/07/18 07:31 04/07/18 08:36 Intake & Output 04/06/18 04/07/18 04/08/18 06:59 06:59 06:59 Intake Total 2766 4775 437 Output Total 1400 250 Balance 921 2457 437 Weight 93.6 kg 93 kg General appearance: PRESENT: no acute distress, obese Head exam: PRESENT: normocephalic Neck exam: ABSENT: tracheal deviation Respiratory exam: PRESENT: symmetrical, unlabored. ABSENT: wheezes Cardiovascular exam: PRESENT: RRR GI/Abdominal exam: PRESENT: soft. ABSENT: tenderness Results Laboratory Results: 04/07/18 06:07 04/07/18 06:07 04/06/18 04/07/18 04/07/18 13:45 06:07 06:07 WBC 9.7 RBC 3.55 L Hgb 10.6 L Hct 32.0 L MCV 90 MCH 29.8 MCHC 33.1 RDW 14.3 H Plt Count 198 Sodium 143.1 Potassium 4.0 Chloride 107 Carbon Dioxide 29 Anion Gap 7 BUN 20 Creatinine 0.62 Est GFR ( Amer) > 60 Est GFR (Non-Af Amer) > 60 Glucose 146 H Calcium 11.3 H Phosphorus 2.7 Magnesium 1.7 TSH Free T4 Free T3 pg/mL PTH Intact 197.7 H 04/07/18 04/07/18 06:07 06:07 WBC RBC Hgb Hct MCV MCH MCHC RDW Plt Count Sodium Potassium Chloride Carbon Dioxide Anion Gap BUN Creatinine Est GFR ( Amer) Est GFR (Non-Af Amer) Glucose Calcium Phosphorus Magnesium TSH 0.22 L Free T4 1.82 Free T3 pg/mL 2.48 L PTH Intact 04/05/18 04/06/18 04/06/18 22:22 04:12 11:05 Troponin I 0.019 < 0.012 < 0.012 NT-Pro-B Natriuret Pep 04/06/18 04/07/18 11:05 06:07 Troponin I NT-Pro-B Natriuret Pep 683 [id number] Impressions: Chest X-Ray 04/05/18 17:58 IMPRESSION: Extensive left lower lobe pneumonia. Chest CT 04/06/18 00:00 IMPRESSION: Multi lobar pneumonia. Qualifiers - * PATIENT BEING DISCHARGED WITH ANY OF THE FOLLOWING DIAGNOSIS: No Plan Time Spent: Greater than 30 Minutes
[2018-04-07 14:01] VITALS: BP 106/50
[2018-04-08] MEDS ORDERED: LEVOFLOXACIN 750 MG TABLET PO SCH (10:00)
== END 2018-04-07 14:50 | disposition home or self-care (01) | DRG 871 ==
LOC: ER 17:37 → EH 20:09 → 3S 22:05
PROVIDERS: ADMIT Internal Medicine; ATTEND Internal Medicine
DX: A41.9 Sepsis, unspecified organism (principal); J18.9 Pneumonia, unspecified organism; J96.22 Acute and chronic respiratory failure with hypercapnia; J44.0 Chronic obstructive pulmonary disease with (acute) lower respiratory infection; J44.1 Chronic obstructive pulmonary disease with (acute) exacerbation; E87.6 Hypokalemia; E78.5 Hyperlipidemia, unspecified; I10 Essential (primary) hypertension; E83.52 Hypercalcemia; E11.9 Type 2 diabetes mellitus without complications; F32.9 Major depressive disorder, single episode, unspecified; E21.3 Hyperparathyroidism, unspecified; R94.6 Abnormal results of thyroid function studies; E66.9 Obesity, unspecified; Z66 Do not resuscitate; M19.90 Unspecified osteoarthritis, unspecified site; Z79.84 Long term (current) use of oral hypoglycemic drugs; Z79.899 Other long term (current) drug therapy; Z99.81 Dependence on supplemental oxygen; Z87.891 Personal history of nicotine dependence; Z87.01 Personal history of pneumonia (recurrent); Z68.35 Body mass index [BMI] 35.0-35.9, adult; Z90.49 Acquired absence of other specified parts of digestive tract; Z80.42 Family history of malignant neoplasm of prostate; Z80.0 Family history of malignant neoplasm of digestive organs; Z80.7 Family history of other malignant neoplasms of lymphoid, hematopoietic and related tissues; Z86.14 Personal history of Methicillin resistant Staphylococcus aureus infection
CPT/HCPCS: 36415; 71045; 71250; 80048; 80053; 81001; 82397; 82565; 82803; 82962; 83036; 83605; 83735; 83880; 83970; 84100; 84132; 84439; 84443; 84481; 84484; 85025; 85027; 85610; 85730; 87040; 87086; 87088; 87186; 93005; 93010; 94640; 94667; 94799; 96365; 96368; 96375; 99285; J0456; J0696; J1644; J1650; J1815; J2920; J2930; J3480; J3490; J7030; J7620

== ENCOUNTER → 2018-08-23 | Outpatient (CLI) | payer MEDICARE | LOC: LAB 08:07 | PROVIDERS: ATTEND Hospitalist | DX: R05 Cough (principal) | CPT/HCPCS: 87070 ==

== ENCOUNTER → 2019-03-04 | Outpatient (CLI) | payer MEDICARE ==
--- NOTE | 2019-03-04 12:59 | RADIOLOGY REPORT (SQ) ---
EXAM DESCRIPTION: HIP RIGHT AP/LATERAL COMPLETED DATE/TIME: 03/04/2019 11:41 am REASON FOR STUDY: R HIP PAIN COMPARISON: None. NUMBER OF VIEWS: Two views. TECHNIQUE: AP pelvis and additional frog-leg view of the right hip. LIMITATIONS: None. FINDINGS: MINERALIZATION: Normal. RIGHT HIP: Arthroplasty in good position. No fracture or dislocation. LEFT HIP: Mild joint space narrowing. PUBIS AND ISCHIUM: No fracture. PELVIS: No fracture. SACRUM: No fracture or dislocation. No worrisome bone lesions. LOWER LUMBAR SPINE: No fracture or dislocation. No worrisome bone lesions. No significant disc disea se. SOFT TISSUES: No findings. OTHER: No other significant finding. IMPRESSION: Right hip arthroplasty in good position. Mild degenerative joint disease in the left hi p. TECHNICAL DOCUMENTATION: JOB ID: [id number] [employer]- All Rights Reserved Reading location - IP/workstation name: [email or web address]
== END ==
LOC: RAD 11:16
PROVIDERS: ATTEND Physician Assistant Medical
DX: M25.551 Pain in right hip (principal); M16.12 Unilateral primary osteoarthritis, left hip